=== PATIENT | female | born 1960 | race Caucasian/White ===

== ENCOUNTER 2017-06-05 09:49 | Inpatient (IN) | payer OTHER ==
[~2017-06-05] VITALS: Ht 167.6 cm; Wt 105.5 kg
[~2017-06-05 09:49] MED LIST: ALBU83IN INH; ASPI81TA24 PO; AVEL1TAB3 PO; CITA20TA4 PO; LEVO88TA3 PO; LOSA50TA20 PO; NICO7DIS4 TD; PRED20TA PO; SYMB80INH INH; TOPR50TA PO
[2017-06-05] MEDS ORDERED: ALBU83IN INH (10:13)
[2017-06-05] MEDS ORDERED: ALBU17IN INH (10:17)
[2017-06-05] MEDS ORDERED: TOPR50TA PO (10:17)
[2017-06-05] MEDS ORDERED: LOSA100T8 PO (10:17)
[2017-06-05] MEDS ORDERED: SING10TA32 PO (10:17)
[2017-06-05] MEDS ORDERED: CRES10TA32 PO (10:17)
[2017-06-05] MEDS ORDERED: NS 1,000 ML IV SCH ×2 (10:45→16:43)
[2017-06-05] MEDS ORDERED: ONDANSETRON 4MG/2ML VIAL (J2405) IV ONE (10:45)
[2017-06-05 10:56] LABS: BASO # 0.1 K/mm3 (0.0-0.2); BASO % 0.8 % (0.0-1.0); EOS # 0.3 K/mm3 (0.0-0.50); EOS % 3.4 % (0.0-3.0); LARGE UNSTAINED CELL # 0.1 K/mm3 (0.0-0.4); LARGE UNSTAINED CELL % 0.9 % (0.0-4.0); LYMPH # 1.5 K/mm3 (1.5-4.5); LYMPH % 15.7 % (24.0-44.0); MEAN CORPUSCULAR HEMOGLOBIN 33.5 pg (27.0-33.0); MEAN CORPUSCULAR HGB CONC 34.2 g/dl (32.0-36.5); MEAN CORPUSCULAR VOLUME 97.8 fl (80.0-96.0); MONO # 0.4 K/mm3 (0.0-0.8); MONO % 4.6 % (0.0-5.0); NEUTROPHILS # 6.7 K/mm3 (1.8-7.7); NEUTROPHILS % 74.7 % (36.0-66.0); PLATELET COUNT, AUTOMATED 266 k/mm3 (150-450); RED CELL DISTRIBUTION WIDTH 12.5 % (11.5-14.5)
[2017-06-05 11:20] LABS: ANION GAP 9 MEQ/L (8-16); BLOOD UREA NITROGEN 11 MG/DL (7-18); CALCIUM LEVEL 9.1 MG/DL (8.5-10.1); CARBON DIOXIDE LEVEL 30 MEQ/L (21-32); CHLORIDE LEVEL 101 MEQ/L (98-107); CREATININE FOR GFR 0.85 MG/DL (0.55-1.02); GLOMERULAR FILTRATION RATE > 60.0 (>51); GLUCOSE, FASTING 109 MG/DL (70-105); POTASSIUM SERUM 3.6 MEQ/L (3.5-5.1); SODIUM LEVEL 140 MEQ/L (136-145)
[2017-06-05] MEDS ORDERED: GASTROGRAFIN SOLUTION 30ML PO ONE ×2 (12:05→12:30)
[2017-06-05] MEDS ORDERED: GASTROGRAFIN SOLUTION 30ML (Q9963) PO ONE ×2 (12:30→12:35)
[2017-06-05] MEDS ORDERED: ISOVUE-370 76% 100ML VIAL (Q9967) As Ordered ONE (13:25)
[2017-06-05] MEDS ORDERED: SYMB16INH INH (16:11)
[2017-06-05] MEDS ORDERED: CLOP75TA2 PO (16:11)
[2017-06-05] MEDS ORDERED: B-COTAB10 PO (16:11)
[2017-06-05] MEDS ORDERED: MAGN400T5 PO (16:11)
[2017-06-05] MEDS ORDERED: COQ-100C2 PO (16:11)
[2017-06-05] MEDS ORDERED: ONDANSETRON 4 MG TAB (S0181) PO PRN (16:45)
[2017-06-05] MEDS ORDERED: ACETAMINOPHEN TAB 650MG DOSE (2X325MG) PO PRN ×2 (16:45→20:15)
[2017-06-05] MEDS ORDERED: ALBUTEROL SULFATE 2.5 MG/0.5 ML INH NEB SOLN INH PRN (17:15)
[2017-06-05] MEDS ORDERED: ALBUTEROL 90 MCG/ACT 8GM HFA INHALER INH PRN (17:15)
--- NOTE | 2017-06-05 18:46 | REP ---
CT abdomen pelvis with IV and oral contrast: History: Lower GI bleeding. Right lower quadrant pain. CT contrast dose: 100 ml of intravenous Isovue [address] findings: The preliminary digital edge burnisher radiograph shows an unremarkable gas pattern. The lung bases are clear. The liver shows mild diffuse fatty infiltration but is otherwise intact. No focal liver lesion is seen. Spleen is normal in size and homogeneous in texture. There is a tiny nodule in the medial limb of the right adrenal gland. This measures 1.9 cm in greatest diameter. This may be an adenoma. Normal caliber aorta is seen. No pancreatic abnormality is noted. The gallbladder is unremarkable. No hydronephrosis is seen. The kidneys enhance symmetrically and are morphologically intact. The appendix is surgically absent. The uterus has been removed. The urinary bladder is intact. There is mural thickening in the left colon from the splenic flexure through the descending segment with mild pericolonic stranding. This may reflect enterocolitis, infectious, inflammatory, or conceivably ischemic. The celiac axis, superior mesenteric artery, all appear to be enhancing consistent with patency. No free air is seen. No abdominal wall defect is observed. Impression: Enterocolitis picture involving the descending colon with mural thickening and mild pericolonic stranding from splenic flexure to the sigmoid segment. Infectious, inflammatory versus less likely ischemic. There is mild fatty infiltration of the liver. Post hysterectomy and appendectomy. Signed by Sincere Rice MD 06/09/2017 08:18 A
[2017-06-05] MEDS ORDERED: MAALOX 30 ML SUSP *UDC PO PRN (20:15)
[2017-06-05] MEDS ORDERED: ONDANSETRON 4MG/2ML VIAL (J2405) IV PRN (20:15)
[2017-06-05] MEDS ORDERED: PERCOCET 5MG/325MG TAB PO PRN (20:15)
[2017-06-05] MEDS: KCL 20MEQ in NS 1000ML 1,000 ML IV SCH (20:59)
[2017-06-05] MEDS ORDERED: hydroCHLOROthiazide 12.5 MG CAPSULE PO SCH (21:00)
[2017-06-05 22:20] VITALS: BP 173/93
[2017-06-05] MEDS: CIPROFLOXACIN 400 MG in APPROPRIATE DILUENT 1 EA IV SCH (22:41)
[2017-06-05] MEDS: MONTELUKAST 10 MG TAB PO SCH (22:42)
[2017-06-05] MEDS: METOPROLOL SUCC (TopROL XL) 50MG **XL** TAB PO SCH (22:43)
[2017-06-05] MEDS: CitaloPRAM (CeleXA) 20 MG TAB PO SCH (22:43)
[2017-06-05] MEDS: SYMBICORT 160/4.5MCG INHALER 6GM INH SCH (22:44)
[2017-06-05] MEDS: LOSARTAN 50 MG TAB PO SCH (22:44)
--- NOTE | 2017-06-05 23:42 | HPEPDOC ---
General Date of Admission 06/05/2017 Other Providers PCP: Nelli Jimenez Hospitality Coordinator: Dr. Stewart Attending Physician: VOLODYMYR DIAL DO Chief Complaint The patient is a 57-year-old female admitted with a reason for visit of Rectal Bleeding. History of Present Illness 57-year-old female with past medical history noticeable for coronary artery disease with stent placement 2014-on aspirin and Plavix, hypertension, hyperlipidemia, and COPD presents to the ED for new onset of nausea, vomiting, lower abdominal pain, and bloody diarrhea. Symptoms woke her up in her sleep around 11 PM last night, and patient has since had around 5 bowel movements. Patient unsure of when the blood in stool started, but first noticed it this morning. She describes stool as loose and with bright red blood. Patient states last episode of vomiting was this morning, and since has been dry heaving. Patient states she has never experienced this before. Patient denies hematemesis , hematuria, loss of appetite, unexpected weight loss. Patient denies recent travel history, sick contacts, changes in medications or lifestyle. Home Medications Scheduled (Losartan Potassium/Hydroc 100-12.5 mg) 1 Tab Tab, 1 TAB PO QHS, (Reported) (Coq-10) Unknown Strength Cap, Unknown Dose PO DAILY, (Reported) (B-Complex) 1 Tab Tab, 1 TAB PO DAILY, (Reported) Albuterol Sulfate (Albuterol Sulfate) 2.5 Mg/3 Ml Nebu, 2.5 MG INH PRN, ( Reported) Albuterol Sulfate (Ventolin Hfa) 200 Puff/8 Gm Aers, 2 PUFF INH PRN, (Reported) Aspirin (Aspirin EC) 81 Mg Tab, 81 MG PO DAILY, (Reported) HAS NOT TAKEN IN 10 DAYS DUE TO HAVING SURGERY Budesonide/Formoterol (Symbicort 160-4.5 Mcg/Act) 60 Puff/Inhaler Aers, 2 PUFF INH BID, (Reported) Citalopram Hydrobromide (Citalopram Hydrobromide) 20 Mg Tab, 20 MG PO QHS, ( Reported) Clopidogrel Bisulfate (Clopidogrel) 75 Mg Tab, 75 MG PO QHS, (Reported) Levothyroxine Sodium (Synthroid) 88 Mcg Tab, 88 MCG PO DAILY, (Reported) Magnesium Oxide (Magnesium Oxide 400) 400 Mg Tab, 400 MG PO DAILY, (Reported) Metoprolol Succinate (Toprol Xl) 50 Mg Tab, 50 MG PO BID, (Reported) Montelukast Sodium (Singulair) 10 Mg Tab, 10 MG PO QHS, (Reported) Rosuvastatin (Crestor) 10 Mg Tab, 10 MG PO Q2D, (Reported) BEDTIME Allergies Coded Allergies: Penicillins (Verified Allergy, Severe, throat swelling, 06/05/17) Cephalosporins (Verified Allergy, Intermediate, hives, 06/05/17) Vancomycin (Verified Allergy, Intermediate, hives, 06/05/17) Mold (Blue) Cheese (Verified Allergy, Unknown, 09/25/14) Past Medical History Medical History Hypertension Hyperlipidemia Depression Hypothyroidism Coronary artery disease (RCA 30% blocked, LAD 50%, circumflex 60%) COPD Surgical History total abdominal hysterectomy-bilateral salpingo-oophorectomy Right knee arthroscopic surgery Right knee replacement Appendectomy Left knee lateral and medial meniscus repair Cardiac stents 06/2015 Family History Father: hypertension, coronary artery disease-quadruple bypass at age 46, passed of [place] at age 69 Mother: Alive, hypertension Siblings: Healthy Maternal grandmother: Breast cancer Social History Smoking: Quit 5 months ago, smoked half ppd for >30 years Alcohol: Wine 1-2 glasses/day, daily Illicit substances: Denies Lives at home with , one dog, 3 cats, one cockatoo 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[employer] [place] Review of Symptoms Constitutional: Denies: Chills, Fever, Malaise, Night Sweats, Weakness, Weight Loss Eyes: Denies: Vision change ENT: Denies: Head Aches, Ear Pain, Dysphagia Pulmonary: Denies: Dyspnea, Cough Cardiovascular: Denies: Chest Pain, Palpitations, Edema, Lt Headedness Gastrointestinal: Reports: Nausea, Vomiting (non-bloody, non-bilious), Abdominal Pain (lower abdomen), Diarrhea (4-5 BMs in past 24 hours), Hematochezia, Denies: Melena Genitourinary: Denies: Hematuria Musculoskeletal: Denies: Joint Pain, Muscle Pain Neurological: Denies: Weakness, Numbness Psych: Reports: Mood Normal Physical Examination General Exam: Positive: Alert, Cooperative, No Acute Distress Eye Exam: Positive: PERRLA, Conjunctiva & lids normal, EOMI, Negative: Sclera icteric ENT Exam: Positive: Atraumatic, Mucous membr. moist/pink, Pharynx Normal, Tongue Midline Neck Exam: Positive: Supple, Negative: JVD, thyromegaly, Lymphadenopathy Chest Exam: Positive: Clear to auscultation, Normal air movement, Negative: Rales, Rhonchi, Wheezing Heart Exam: Positive: Rate Normal, Regular Rhythm, Normal S1, Normal S2, Negative: Murmurs Abdomen Exam: Positive: Normal bowel sounds, Soft, Tenderness (to palpation in left lower quadrant) Extremity Exam: Positive: Normal pulses, Negative: Clubbing, Cyanosis, Edema Skin Exam: Positive: Nl turgor and temperature Neuro Exam: Positive: Normal Speech, Strength at 5/5 X4 ext Psych Exam: Positive: Mental status NL, Mood NL, Memory Intact, Oriented x 3 Vital Signs Vital Signs Date Time Temp Pulse Resp B/P (MAP) Pulse Ox O2 Delivery O2 Flow Rate FiO2 06/05/17 15:52 64 94 06/05/17 14:07 124/77 (93) 06/05/17 09:50 97.6 18 Room Air Laboratory Data Labs 24H Laboratory Tests 2 06/05/17 10:45: White Blood Count 9.0, Red Blood Count 4.01, Hemoglobin 13.4, Hematocrit 39.2, Mean Corpuscular Volume 97.8H, Mean Corpuscular Hemoglobin 33.5H, Mean Corpuscular Hemoglobin Concent 34.2, Red Cell Distribution Width 12.5, Platelet Count 266, Neutrophils (%) (Auto) 74.7H, Lymphocytes (%) (Auto) 15.7L, Monocytes (%) (Auto) 4.6, Eosinophils (%) (Auto) 3.4H, Basophils (%) (Auto) 0.8 , Neutrophils # (Auto) 6.7, Lymphocytes # (Auto) 1.5, Monocytes # (Auto) 0.4, Eosinophils # (Auto) 0.3, Basophils # (Auto) 0.1, Large Unclassified Cells % 0.9 , Large Unclassified Cells # 0.1, Anion Gap 9, Glomerular Filtration Rate > 60.0 , Blood Urea Nitrogen 11, Creatinine 0.85, Sodium Level 140, Potassium Level 3.6 , Chloride Level 101, Carbon Dioxide Level 30, Calcium Level 9.1 06/05/17 15:35: Lactic Acid Level 1.0 CBC/BMP Laboratory Tests 06/05/17 10:45 Red Blood Count 4.01, Mean Corpuscular Volume 97.8 H, Mean Corpuscular Hemoglobin 33.5 H, Mean Corpuscular Hemoglobin Concent 34.2, Red Cell Distribution Width 12.5, Neutrophils (%) (Auto) 74.7 H, Lymphocytes (%) (Auto) 15.7 L, Monocytes (%) (Auto) 4.6, Eosinophils (%) (Auto) 3.4 H, Basophils (%) ( Auto) 0.8, Neutrophils # (Auto) 6.7, Lymphocytes # (Auto) 1.5, Monocytes # (Auto ) 0.4, Eosinophils # (Auto) 0.3, Basophils # (Auto) 0.1, Calcium Level 9.1 06/05/17 14:08 Assessment/Plan N/V/D / Enterocolitis -PENDING: blood cultures, urinalysis -CT Abd/Pelvis: Enterocolitis of descending colon. Infectious, inflammatory versus less likely ischemic. -stool occult blood: positive -GI Panel: negative -no white count on admission, lactica acid normal, and vitals WNL on admission. Start Cipro, Flagyl due to imaging suggesting enteritis and elevated CRP -NG Tube if pt continues vomiting -check orthostatics. IV hydration. Clear liquid diet. -Consult surgery. Appreciate their input Hypothyroidism -PENDING: TSH level -home med Synthroid HLD/CAD -home med Crestor, Toprol HTN -home med Cozaar. Hold HCTZ COPD -home meds Symbicort, Singulair, Proventil Depression -home med Celexa DVT prophylaxis -SCD/FLY DISPO: admit to Med-Surg to Dr. Dial's service. Plan / VTE VTE Prophylaxis Ordered?: Yes GME ATTESTATION GME ATTESTATION My preceptor for this patient encounter was physically present in the building during the encounter and was fully available. As needed, all aspects of the patient interview, examination, medical decision making process, and medical care plan development were reviewed and approved by the preceptor. Preceptor is aware and concurs with the plan as stated in the body of this note and will attest to such by his/her cosignature. ATTENDING NOTE I have both independently examined this patient as well as reviewed the H&P. I have discussed in detail with the resident the findings and plan of treatment as documented in the residents note. I will continue to follow the patient and offer further guidance to the patients care as necessary during this hospital stay. Tesha [facility] Jun 05, 2017 17:20 TESHA GILLIS MD Jun 07, 2017 11:47
[2017-06-06] VITALS: BP_SYST 119; BP_SYST 122; BP_SYST 123; BP_DIAS 67; BP_DIAS 71; BP_DIAS 75
[2017-06-06] MEDS: metroNIDAZOLE 500 MG in APPROPRIATE DILUENT 1 EA IV SCH ×4 (00:02→22:56)
[2017-06-06] MEDS: KCL 20MEQ in NS 1000ML 1,000 ML IV SCH ×2 (03:45→10:20)
[2017-06-06] MEDS: LEVOTHYROXINE 88MCG TABLET (0.088 MG) PO SCH (06:16)
[2017-06-06 07:24] LABS: MEAN CORPUSCULAR HEMOGLOBIN 33.7 pg (27.0-33.0); MEAN CORPUSCULAR HGB CONC 34.5 g/dl (32.0-36.5); MEAN CORPUSCULAR VOLUME 97.5 fl (80.0-96.0); RED CELL DISTRIBUTION WIDTH 12.4 % (11.5-14.5); WHITE BLOOD COUNT 7.8 K/mm3 (4.0-10.0)
[2017-06-06] MEDS: SYMBICORT 160/4.5MCG INHALER 6GM INH SCH ×2 (07:54→19:34)
[2017-06-06 08:00] VITALS: BP 117/60
[2017-06-06 08:01] LABS: ANION GAP 9 MEQ/L (8-16); BLOOD UREA NITROGEN 7 MG/DL (7-18); CALCIUM LEVEL 7.7 MG/DL (8.5-10.1); CARBON DIOXIDE LEVEL 23 MEQ/L (21-32); CHLORIDE LEVEL 112 MEQ/L (98-107); CREATININE FOR GFR 0.71 MG/DL (0.55-1.02); GLOMERULAR FILTRATION RATE > 60.0 (>51); GLUCOSE, FASTING 101 MG/DL (70-105); MAGNESIUM LEVEL 1.7 MG/DL (1.8-2.4); POTASSIUM SERUM 3.9 MEQ/L (3.5-5.1); SODIUM LEVEL 144 MEQ/L (136-145); T UPTAKE 42 % (30-39); THYROXINE (T4) 11.5 UG/DL (4.5-12.0)
[2017-06-06 08:02] VITALS: BP 122/62
[2017-06-06 08:04] VITALS: BP 129/64
[2017-06-06] MEDS: CIPROFLOXACIN 400 MG in APPROPRIATE DILUENT 1 EA IV SCH ×2 (08:50→21:19)
[2017-06-06] MEDS: METOPROLOL SUCC (TopROL XL) 50MG **XL** TAB PO SCH ×2 (08:51→21:22)
[2017-06-06] MEDS: MAGNESIUM OXIDE 400 MG TAB (MAG-OX) PO SCH (08:51)
[2017-06-06] MEDS ORDERED: PANTOPRAZOLE 40MG INJ (PROTONIX) (C9113) IV SCH (09:00)
--- NOTE | 2017-06-06 10:50 | IPNPDOC ---
Subjective Date Seen The patient was seen on 06/06/17. Subjective Chief Complaint/HPI The patient is a 57-year-old female admitted with a reason for visit of Enteritis. Patient seen and examined at bedside. No acute complaints or reported events overnight. Nausea and vomiting have resolved. Last bowel movement was last night in the ED that was bloody. Patient still reports lower abdominal pain, more so on the left. Denies fever, hematuria, lightheadedness, dizziness. Tolerating clear liquid diet well. General: Reports: Normal Appetite Constitutional: Denies: Chills, Fever ENT: Denies: Head Aches, Dysphagia Pulmonary: Denies: Dyspnea, Cough Cardiovascular: Denies: Chest Pain, Palpitations, Edema, Lt Headedness Gastrointestinal: Reports: Abdominal Pain (lower abdmonen, more on left side), Diarrhea (no BM today, 1 in ER last night-bloody), Hematochezia, Denies: Nausea, Vomiting, Melena Genitourinary: Denies: Hematuria Neurological: Denies: Weakness, Numbness Psych: Reports: Mood Normal Objective Physical Examination General Exam: Positive: Alert, Cooperative, No Acute Distress Eye Exam: Positive: PERRLA, Conjunctiva & lids normal, EOMI, Negative: Sclera icteric ENT Exam: Positive: Atraumatic, Mucous membr. moist/pink, Pharynx Normal, Tongue Midline Neck Exam: Positive: Supple, Negative: JVD, thyromegaly, Lymphadenopathy Chest Exam: Positive: Clear to auscultation, Normal air movement, Negative: Rales, Rhonchi, Wheezing Heart Exam: Positive: Rate Normal, Regular Rhythm, Normal S1, Normal S2, Negative: Murmurs Abdomen Exam: Positive: Normal bowel sounds, Soft, Tenderness (mild pain to palpation in left lower quadrant) Extremity Exam: Positive: Normal pulses, Negative: Clubbing, Cyanosis, Tenderness, Swelling Skin Exam: Positive: Nl turgor and temperature Neuro Exam: Positive: Normal Speech, Strength at 5/5 X4 ext Psych Exam: Positive: Mental status NL, Mood NL, Memory Intact, Oriented x 3 Assessment /Plan Assessment N/V/D 2/2 Enterocolitis -PENDING: blood cultures -No white count today, and afebrile, but CRP increasing. Continue Cipro, Flagyl -orthostatics negative so far -IV hydration. Tolerating clear liquid diet well. Will advance as tolerated Borderline Hypocalcemia -Corrected Ca=8.5. Replete today Hypothyroidism -TSH normal -continue home med Synthroid HLD/CAD -home med Crestor, Toprol HTN -home med Cozaar. Hold HCTZ COPD -home meds Symbicort, Singulair, Proventil Depression -home med Celexa DVT prophylaxis -SCD/FLY Plan/VTE VTE Prophylaxis Ordered?: Yes VS, I&O, 24H, Fishbone Vital Signs/I&O Vital Signs Date Time Temp Pulse Resp B/P (MAP) Pulse Ox O2 Delivery O2 Flow Rate FiO2 06/06/17 04:00 Room Air 06/06/17 00:00 63 119/67 (84) 06/05/17 22:20 98.2 18 95 I&O- Last 24 Hours up to 6 AM 06/06/17 06:00 Intake Total 1240 ml Output Total 100 ml Balance 1140 ml Laboratory Data 24H LABS Laboratory Tests 2 06/05/17 10:45: White Blood Count 9.0, Red Blood Count 4.01, Hemoglobin 13.4, Hematocrit 39.2, Mean Corpuscular Volume 97.8H, Mean Corpuscular Hemoglobin 33.5H, Mean Corpuscular Hemoglobin Concent 34.2, Red Cell Distribution Width 12.5, Platelet Count 266, Neutrophils (%) (Auto) 74.7H, Lymphocytes (%) (Auto) 15.7L, Monocytes (%) (Auto) 4.6, Eosinophils (%) (Auto) 3.4H, Basophils (%) (Auto) 0.8 , Neutrophils # (Auto) 6.7, Lymphocytes # (Auto) 1.5, Monocytes # (Auto) 0.4, Eosinophils # (Auto) 0.3, Basophils # (Auto) 0.1, Large Unclassified Cells % 0.9 , Large Unclassified Cells # 0.1, Anion Gap 9, Glomerular Filtration Rate > 60.0 , Blood Urea Nitrogen 11, Creatinine 0.85, Sodium Level 140, Potassium Level 3.6 , Chloride Level 101, Carbon Dioxide Level 30, Calcium Level 9.1 06/05/17 15:35: Lactic Acid Level 1.0 06/05/17 17:31: C-Reactive Protein, Quantitative 0.76H 06/06/17 07:09: Anion Gap 9, Glomerular Filtration Rate > 60.0, Blood Urea Nitrogen 7, Creatinine 0.71, Sodium Level 144, Potassium Level 3.9, Chloride Level 112H, Carbon Dioxide Level 23, Calcium Level 7.7#L, Magnesium Level 1.7L, Thyroid Stimulating Hormone (TSH) 0.790, Free Thyroxine Index 4.8, Thyroxine (T4) 11.5, Triiodothyronine (T3) Uptake 42H CBC/BMP Laboratory Tests 06/05/17 10:45 Red Blood Count 4.01, Mean Corpuscular Volume 97.8 H, Mean Corpuscular Hemoglobin 33.5 H, Mean Corpuscular Hemoglobin Concent 34.2, Red Cell Distribution Width 12.5, Neutrophils (%) (Auto) 74.7 H, Lymphocytes (%) (Auto) 15.7 L, Monocytes (%) (Auto) 4.6, Eosinophils (%) (Auto) 3.4 H, Basophils (%) ( Auto) 0.8, Neutrophils # (Auto) 6.7, Lymphocytes # (Auto) 1.5, Monocytes # (Auto ) 0.4, Eosinophils # (Auto) 0.3, Basophils # (Auto) 0.1, Calcium Level 9.1 06/05/17 14:08 06/05/17 20:23 06/06/17 02:02 06/06/17 07:09 Red Blood Count 3.49 L, Mean Corpuscular Volume 97.5 H, Mean Corpuscular Hemoglobin 33.7 H, Mean Corpuscular Hemoglobin Concent 34.5, Red Cell Distribution Width 12.4, Calcium Level 7.7 #L Microbiology Microbiology 06/05/17 Blood Culture, Received Pending 06/05/17 Blood Culture, Received Pending 06/05/17 Gastrointestinal Tract Panel (PCR) - Final, Complete 06/05/17 Stool Occult Blood ([facility]) - Final, Complete GME ATTESTATION GME ATTESTATION My preceptor for this patient encounter was physically present in the building during the encounter and was fully available. As needed, all aspects of the patient interview, examination, medical decision making process, and medical care plan development were reviewed and approved by the preceptor. Preceptor is aware and concurs with the plan as stated in the body of this note and will attest to such by his/her cosignature. RAGINI ROSS DO Jun 06, 2017 08:21
[2017-06-06] MEDS ORDERED: CALCIUM CARBONATE 500 MG CHEW U/D PO ONE (11:00)
[2017-06-06 16:00] VITALS: BP_SYST 127; BP_SYST 137; BP_SYST 158; BP_DIAS 73; BP_DIAS 82; BP_DIAS 83
[2017-06-06 20:00] VITALS: BP 134/74
[2017-06-06] MEDS: MONTELUKAST 10 MG TAB PO SCH (21:19)
[2017-06-06] MEDS: ROSUVASTATIN 10 MG TAB (CRESTOR) PO SCH (21:19)
[2017-06-06] MEDS: LOSARTAN 50 MG TAB PO SCH (21:22)
[2017-06-06] MEDS: CitaloPRAM (CeleXA) 20 MG TAB PO SCH (21:23)
[2017-06-07] VITALS: BP 120/63
[2017-06-07] MEDS: KCL 20MEQ in NS 1000ML 1,000 ML IV SCH (02:27)
[2017-06-07] MEDS: LEVOTHYROXINE 88MCG TABLET (0.088 MG) PO SCH (06:27)
[2017-06-07] MEDS: metroNIDAZOLE 500 MG in APPROPRIATE DILUENT 1 EA IV SCH (06:27)
[2017-06-07 07:07] LABS: MEAN CORPUSCULAR HEMOGLOBIN 33.4 pg (27.0-33.0); MEAN CORPUSCULAR HGB CONC 33.7 g/dl (32.0-36.5); RED CELL DISTRIBUTION WIDTH 12.5 % (11.5-14.5); WHITE BLOOD COUNT 8.9 K/mm3 (4.0-10.0)
[2017-06-07 07:15] VITALS: BP_SYST 138; BP_SYST 149; BP_SYST 153; BP_DIAS 77; BP_DIAS 91; BP_DIAS 99
[2017-06-07 07:25] LABS: ANION GAP 7 MEQ/L (8-16); BLOOD UREA NITROGEN 4 MG/DL (7-18); CALCIUM LEVEL 8.7 MG/DL (8.5-10.1); CARBON DIOXIDE LEVEL 26 MEQ/L (21-32); CHLORIDE LEVEL 110 MEQ/L (98-107); CREATININE FOR GFR 0.69 MG/DL (0.55-1.02); GLOMERULAR FILTRATION RATE > 60.0 (>51); GLUCOSE, FASTING 107 MG/DL (70-105); MAGNESIUM LEVEL 2.1 MG/DL (1.8-2.4); POTASSIUM SERUM 4.1 MEQ/L (3.5-5.1); SODIUM LEVEL 143 MEQ/L (136-145)
[2017-06-07] MEDS: SYMBICORT 160/4.5MCG INHALER 6GM INH SCH ×2 (08:42→19:44)
[2017-06-07 09:00] VITALS: BP 126/70
[2017-06-07] MEDS: MAGNESIUM OXIDE 400 MG TAB (MAG-OX) PO SCH (10:34)
[2017-06-07] MEDS: METOPROLOL SUCC (TopROL XL) 50MG **XL** TAB PO SCH ×2 (10:35→21:38)
[2017-06-07] MEDS: PANTOPRAZOLE 40MG TAB (PROTONIX) PO SCH (15:07)
[2017-06-07] MEDS: metroNIDAZOLE (FLAGYL) 500 MG TAB PO SCH ×2 (15:07→21:38)
--- NOTE | 2017-06-07 15:58 | IPN ---
DATE: 06/07/2017 SUBJECTIVE: Patient is seen and examined in the room today. Per patient, patient does not notice any blood in the stool anymore. Patient had an episode of temperature of 101.3 around 8 p.m. yesterday, however, she had no recurrence in the morning. Due to gastrointestinal (GI) bleed, patient's Plavix has been discontinued and patient is worried about discontinuation of Plavix and she would like feedback from Dr. Stewart. I discussed with the patient that we will try to contact Dr. Stewart when Dr. Stewart is available. OBJECTIVE: VITAL SIGNS: Temperature 98.5, pulse 69, respiration rate is 18, blood pressure supine is 153/77, sitting is 138/99, standing is 149/91, pulse oximetry is 94% in room air. GENERAL: No sign of acute distress, alert and oriented times three. HEENT: Normocephalic, atraumatic. Extraocular motors grossly intact. CARDIOVASCULAR: Positive S1, S2, regular rate. LUNGS: Clear to auscultation bilaterally. ABDOMEN: Soft, tenderness to palpation. EXTREMITIES: No edema. No sign of cyanosis. LABORATORY DATA: WBC 8.9, hemoglobin 11.4, hematocrit 33.9, platelet count 236. Sodium 143, potassium 4.1, chloride 110, carbon dioxide 26, BUN 4, creatinine 0.69, GFR greater than 60, fasting glucose 107, calcium 8.7, magnesium 2.1. ASSESSMENT AND PLAN: 1. Enterocolitis. Patient had a CT abdomen and pelvis with contrast performed on the date of admission. Imaging study suggests enterocolitis. Patient has been on Cipro and Flagyl. Symptomatically, patient shows improvement. Patient was advanced on the diet, however IV has infiltrated, but since patient shows adequate oral intake, will hold the fluid hydration for now. Gastrointestinal (GI) panel is negative. There is the possibility that patient's current presentation may be due to inflammatory disease process instead of infectious process. Will continue to monitor the patient. Since admission, patient had active gastrointestinal (GI) bleed. Will try to followup with hemoglobin and hematocrit. No significant drop of the hemoglobin and hematocrit at this moment and no need for transfusion. We do have a consent for blood products if needed. 2. Acute gastrointestinal (GI) bleed. Plavix has been on hold. Gastrointestinal (GI) bleed resolved today. Continue to monitor. 3. Hypothyroidism. On Synthroid. 4. History of coronary artery disease. On metoprolol and Crestor. Plavix is on hold due to gastrointestinal (GI) bleed. Aspirin is also on hold due to gastrointestinal (GI) bleed. 5. History of chronic obstructive pulmonary disease (COPD). No exacerbation. Continue to monitor. 6. Depression. On Celexa. 7. Deep venous thrombosis (DVT) prophylaxis. Due to gastrointestinal (GI) bleed, patient is on thromboembolism deterrents (TEDs) and sequential compression device.
[2017-06-07 16:00] VITALS: BP 132/75
[2017-06-07 16:28] VITALS: BP 139/62
[2017-06-07] MEDS: CIPROFLOXACIN 500 MG TAB PO SCH (18:26)
[2017-06-07 20:00] VITALS: BP 133/73
[2017-06-07] MEDS: LOSARTAN 50 MG TAB PO SCH (21:37)
[2017-06-07] MEDS: MONTELUKAST 10 MG TAB PO SCH (21:38)
[2017-06-07] MEDS: CitaloPRAM (CeleXA) 20 MG TAB PO SCH (21:38)
[2017-06-08] VITALS: BP 126/76
[2017-06-08] MEDS: CIPROFLOXACIN 500 MG TAB PO SCH ×2 (05:48→18:20)
[2017-06-08] MEDS: LEVOTHYROXINE 88MCG TABLET (0.088 MG) PO SCH (05:48)
[2017-06-08] MEDS: metroNIDAZOLE (FLAGYL) 500 MG TAB PO SCH ×3 (05:48→21:26)
[2017-06-08 07:23] LABS: MEAN CORPUSCULAR HEMOGLOBIN 33.9 pg (27.0-33.0); MEAN CORPUSCULAR HGB CONC 34.7 g/dl (32.0-36.5); MEAN CORPUSCULAR VOLUME 97.8 fl (80.0-96.0); RED CELL DISTRIBUTION WIDTH 12.5 % (11.5-14.5); WHITE BLOOD COUNT 7.6 K/mm3 (4.0-10.0)
[2017-06-08 07:53] LABS: ANION GAP 8 MEQ/L (8-16); BLOOD UREA NITROGEN 8 MG/DL (7-18); CALCIUM LEVEL 8.8 MG/DL (8.5-10.1); CARBON DIOXIDE LEVEL 25 MEQ/L (21-32); CHLORIDE LEVEL 107 MEQ/L (98-107); CREATININE FOR GFR 0.85 MG/DL (0.55-1.02); GLOMERULAR FILTRATION RATE > 60.0 (>51); GLUCOSE, FASTING 107 MG/DL (70-105); MAGNESIUM LEVEL 1.9 MG/DL (1.8-2.4); POTASSIUM SERUM 3.9 MEQ/L (3.5-5.1); SODIUM LEVEL 140 MEQ/L (136-145)
[2017-06-08 08:00] VITALS: BP_SYST 108; BP_SYST 123; BP_SYST 126; BP_DIAS 54; BP_DIAS 73; BP_DIAS 75
[2017-06-08] MEDS: SYMBICORT 160/4.5MCG INHALER 6GM INH SCH ×2 (08:08→18:26)
[2017-06-08] MEDS: PANTOPRAZOLE 40MG TAB (PROTONIX) PO SCH (08:50)
[2017-06-08] MEDS: MAGNESIUM OXIDE 400 MG TAB (MAG-OX) PO SCH (08:50)
[2017-06-08] MEDS: METOPROLOL SUCC (TopROL XL) 50MG **XL** TAB PO SCH ×2 (08:51→21:25)
--- NOTE | 2017-06-08 13:27 | IPNPDOC ---
Subjective Date Seen The patient was seen on 06/08/17. Subjective Chief Complaint/HPI The patient is a 57-year-old female admitted with a reason for visit of Enteritis. No acute complaints or reported events overnight. Pt states she is feeling well, tolerating soft diet without complaint, and did not notice blood in recent BM. Constitutional: Denies: Chills, Fever ENT: Denies: Dysphagia Pulmonary: Denies: Dyspnea, Cough Cardiovascular: Denies: Chest Pain, Palpitations, Lt Headedness Gastrointestinal: Denies: Nausea, Vomiting, Melena, Hematochezia Genitourinary: Denies: Hematuria Neurological: Denies: Weakness, Numbness Psych: Reports: Mood Normal Objective Physical Examination General Exam: Positive: Alert, Cooperative, No Acute Distress Eye Exam: Positive: PERRLA, Conjunctiva & lids normal, EOMI, Negative: Sclera icteric ENT Exam: Positive: Atraumatic, Mucous membr. moist/pink Neck Exam: Positive: Supple, Negative: JVD, Lymphadenopathy Chest Exam: Positive: Clear to auscultation, Normal air movement, Negative: Rales, Rhonchi, Wheezing Heart Exam: Positive: Rate Normal, Regular Rhythm, Normal S1, Normal S2, Negative: Murmurs Abdomen Exam: Positive: Normal bowel sounds, Soft Extremity Exam: Positive: Normal pulses, Negative: Clubbing, Cyanosis, Edema Skin Exam: Positive: Nl turgor and temperature Neuro Exam: Positive: Normal Speech, Strength at 5/5 X4 ext Psych Exam: Positive: Mental status NL, Mood NL, Memory Intact, Oriented x 3 Assessment /Plan Assessment N/V/D -viral enterocolitis vs acute Crohn's episode vs possible malignancy -pt reports recent BM was non-bloody -GI consulted. Appreciate their assistance -blood cultures neg at 24hrs -No white count today, and afebrile, vitals WNL. CRP decreasing from 06/06. Cipro , Flagyl switched to PO due to IV penetration -orthostatics negative so far -IV hydration. Diet was advanced to soft yesterday-tolerating well Hypothyroidism -continue home med Synthroid HLD/CAD -home med Crestor, Toprol HTN -home med Cozaar. Hold HCTZ COPD -home meds Symbicort, Singulair, Proventil Depression -home med Celexa DVT prophylaxis -SCD/FLY Plan/VTE VTE Prophylaxis Ordered?: Yes VS, I&O, 24H, Fishbone Vital Signs/I&O Vital Signs Date Time Temp Pulse Resp B/P (MAP) Pulse Ox O2 Delivery O2 Flow Rate FiO2 06/08/17 00:00 98.8 65 18 126/76 (93) 96 Room Air I&O- Last 24 Hours up to 6 AM 06/08/17 05:59 Intake Total 1080 ml Output Total 700 ml Balance 380 ml Laboratory Data 24H LABS Laboratory Tests 2 06/08/17 07:11: CBC/BMP Laboratory Tests 06/07/17 13:50 06/07/17 19:51 06/08/17 02:07 06/08/17 07:11 Red Blood Count 3.52 L, Mean Corpuscular Volume 97.8 H, Mean Corpuscular Hemoglobin 33.9 H, Mean Corpuscular Hemoglobin Concent 34.7, Red Cell Distribution Width 12.5 Microbiology Microbiology 06/05/17 Blood Culture - Preliminary, Resulted No Growth after 48 hours. All Specime... 06/05/17 Blood Culture - Preliminary, Resulted No Growth after 48 hours. All Specime... 06/05/17 Gastrointestinal Tract Panel (PCR) - Final, Complete 06/05/17 Stool Occult Blood ([facility]) - Final, Complete GME ATTESTATION GME ATTESTATION My preceptor for this patient encounter was physically present in the building during the encounter and was fully available. As needed, all aspects of the patient interview, examination, medical decision making process, and medical care plan development were reviewed and approved by the preceptor. Preceptor is aware and concurs with the plan as stated in the body of this note and will attest to such by his/her cosignature. RAGINI ROSS DO Jun 08, 2017 07:45
[2017-06-08 16:00] VITALS: BP 137/83
[2017-06-08] MEDS ORDERED: GOLYTELY SOLN 4000 ML BTL PO ONE (18:00)
[2017-06-08] MEDS ORDERED: BISACODYL 5 MG TAB PO ONE (18:00)
--- NOTE | 2017-06-08 19:44 | CR.PDOC ---
[facility] Consultation Consultation DATE OF CONSULTATION: Jun 08, 2017 at 16:30 PRIMARY CARE PHYSICIAN: Nelli Jimenez and Baked And Graphite Inspector Dr. Stewart ATTENDING PHYSICIAN: Dr. Saini REASON FOR CONSULTATION/CHIEF COMPLAINT: Abnormal CT scan and rectal bleeding. HISTORY OF PRESENT ILLNESS: 57-year-old female patient with HTN, HLD, CAD with h /o PCI in jun 2015 ( on Plavix and aspirin), h/o smoking for 30 years - quit in 2014 -( normal PFT as per patient), was admitted for scute onset of nausea, one episode of vomiting, followed by lower abdominal pain and multiple episodes of bloody diarrhea ( one witnessed by patient and one witnessed by hospital physician. CT abdomen done in hospital showed bowel wall thickening ( concerning for inflammation vs ischemic colitis). GI consulted for the same. Patient reports that she started having severe 10/ 10 lower abdominal pain with acute onset diarrhea 3 days ago when she had atleast 5 bowel movements and she had bloody bowel movement atleast once in the morning. Patient says she only noted blood without any stools, associated with nausea and dry heaves. Patient today says her pain had significantly improved and the blood in stools had stopped since yesterday morning but still continues to have diarrhea and had one documented episode of fever during the hospitalization. Patient denies similar episodes before, no sick contacts, no unusual food intake, loss of appetite, early satiety or unintentional weight loss hematemesis, melena. 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 Skin: No rash : No hematuria, No burning sensation of the urine ENT: No ear discharge/ pain, No dysphagia. Eyes: No photophobia. Home medications: reviewed. On Plavix and ASA but Not on anticoagulants Medical h/o: As above. Surgical h/o: Hysterectomy with oophorectomy and h/o exploratory laparoscopy with some benign pelvic mass removal and appendix removal.. Social h/o: Social Alcohol use- around 1 - 2 drinks of wine per day. H/o smoking for 30 years but quit in 2014, Denies IVDA/ drugs. Family h/o of GI cancers - None Prior Endoscopies: --- Screening Colonoscopy -- at age 49 -- normal but reports difficult colonoscopy - due to adhesions as per patient - done outside [facility]. Prior GI evaluation: None in [facility]. Exam: Vitals: reviewed General: Alert and oriented x 3, not in distress HEENT: NO pallor, no icterus. Normal oropharynx, NO cervical lymph nodes. Chest: symmetric with bilateral clear air entry, CVS: S1, S2 heard, normal, no murmurs . Abdomen: non-distended, soft, non-tender, no palpable masses, normal bowel sounds heard. Rectal exam: Deferred at this time in view of scheduled colonoscopy. Extremities: no pedal edema, pulses palpable. 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 Moves all extremities Skin: no rash. Labs: reviewed. initial drop in HCT. Normal BUN/ cr. Imaging: reviewed. CT scan showed wall thickening on the left colon. Impression: - Rectal bleeding with abdominal pain - DDx - Ischemic colitis vs infectious colitis vs inflammatory colitis vs r/o polyp vs colon mass( less likely). ( stool panel- negative for infection). - Abnormal CT scan of abdomen. - Mild anemia - likely from GI blood loss. Macrocytosis -- needs further evaluation. Recommendations: - Patient educated about the test results - Patient educated about the possible differential diagnoses and plan of care. All questions answered to the patient satisfaction - Patient educated about the need for colonoscopy and educated about the indications, benefits, risks and alternatives including no intervention. Patient verbalized understanding and consented for the procedure. Consent placed in chart. - Start on clear liquid diet today. - Start on golytely / Garcia-prep ( depending on availability from pharmacy) from now - to complete half tonight and rest of the half by tomorrow morning by 9 AM. - Give dulcolax 20 mg at 6 PM. - Clear liquid until 4 hours prior to procedure then NPO. - Plavix currently on hold as per primary team. - IN view of macrocytic anemia - please obtain Vitamin B12 and folic acid levels. - Update GI stat if any acute change in status. Plan of care discussed with patient and the primary team and ordered for bowel prep placed with help of RN. Patient verbalized understanding and agreed for plan of care. Allergies Coded Allergies: Penicillins (Verified Allergy, Severe, throat swelling, 06/05/17) Cephalosporins (Verified Allergy, Intermediate, hives, 06/05/17) Vancomycin (Verified Allergy, Intermediate, hives, 06/05/17) Mold (Blue) Cheese (Verified Allergy, Unknown, 09/25/14) Home Medications Scheduled (Losartan Potassium/Hydroc 100-12.5 mg) 1 Tab Tab, 1 TAB PO QHS, (Reported) (Coq-10) Unknown Strength Cap, Unknown Dose PO DAILY, (Reported) (B-Complex) 1 Tab Tab, 1 TAB PO DAILY, (Reported) Albuterol Sulfate (Albuterol Sulfate) 2.5 Mg/3 Ml Nebu, 2.5 MG INH PRN, ( Reported) Albuterol Sulfate (Ventolin Hfa) 200 Puff/8 Gm Aers, 2 PUFF INH PRN, (Reported) Aspirin (Aspirin EC) 81 Mg Tab, 81 MG PO DAILY, (Reported) HAS NOT TAKEN IN 10 DAYS DUE TO HAVING SURGERY Budesonide/Formoterol (Symbicort 160-4.5 Mcg/Act) 60 Puff/Inhaler Aers, 2 PUFF INH BID, (Reported) Citalopram Hydrobromide (Citalopram Hydrobromide) 20 Mg Tab, 20 MG PO QHS, ( Reported) Clopidogrel Bisulfate (Clopidogrel) 75 Mg Tab, 75 MG PO QHS, (Reported) Levothyroxine Sodium (Synthroid) 88 Mcg Tab, 88 MCG PO DAILY, (Reported) Magnesium Oxide (Magnesium Oxide 400) 400 Mg Tab, 400 MG PO DAILY, (Reported) Metoprolol Succinate (Toprol Xl) 50 Mg Tab, 50 MG PO BID, (Reported) Montelukast Sodium (Singulair) 10 Mg Tab, 10 MG PO QHS, (Reported) Rosuvastatin (Crestor) 10 Mg Tab, 10 MG PO Q2D, (Reported) BEDTIME ERIN CASTRO MD Jun 08, 2017 19:44
[2017-06-08 20:00] VITALS: BP 128/67
[2017-06-08] MEDS: LOSARTAN 50 MG TAB PO SCH (21:24)
[2017-06-08] MEDS: ROSUVASTATIN 10 MG TAB (CRESTOR) PO SCH (21:25)
[2017-06-08] MEDS: CitaloPRAM (CeleXA) 20 MG TAB PO SCH (21:26)
[2017-06-08] MEDS: MONTELUKAST 10 MG TAB PO SCH (21:26)
[2017-06-09] VITALS (10 sets, daily range): BP systolic 115–161; BP diastolic 63–98
[2017-06-09] MEDS ORDERED: GOLYTELY SOLN 4000 ML BTL PO ONE (06:00)
[2017-06-09] MEDS: metroNIDAZOLE (FLAGYL) 500 MG TAB PO SCH ×3 (06:36→21:43)
[2017-06-09] MEDS: LEVOTHYROXINE 88MCG TABLET (0.088 MG) PO SCH (06:36)
[2017-06-09] MEDS: CIPROFLOXACIN 500 MG TAB PO SCH ×2 (06:37→18:50)
[2017-06-09 07:24] LABS: MEAN CORPUSCULAR HEMOGLOBIN 33.6 pg (27.0-33.0); MEAN CORPUSCULAR HGB CONC 34.2 g/dl (32.0-36.5); MEAN CORPUSCULAR VOLUME 98.3 fl (80.0-96.0); RED CELL DISTRIBUTION WIDTH 12.5 % (11.5-14.5); WHITE BLOOD COUNT 6.5 K/mm3 (4.0-10.0)
[2017-06-09 07:43] LABS: ANION GAP 8 MEQ/L (8-16); BLOOD UREA NITROGEN 7 MG/DL (7-18); CALCIUM LEVEL 9.3 MG/DL (8.5-10.1); CARBON DIOXIDE LEVEL 27 MEQ/L (21-32); CHLORIDE LEVEL 107 MEQ/L (98-107); CREATININE FOR GFR 0.78 MG/DL (0.55-1.02); GLOMERULAR FILTRATION RATE > 60.0 (>51); GLUCOSE, FASTING 111 MG/DL (70-105); MAGNESIUM LEVEL 2.2 MG/DL (1.8-2.4); POTASSIUM SERUM 4.2 MEQ/L (3.5-5.1); SODIUM LEVEL 142 MEQ/L (136-145)
[2017-06-09] MEDS: SYMBICORT 160/4.5MCG INHALER 6GM INH SCH ×2 (08:23→19:21)
[2017-06-09] MEDS: MAGNESIUM OXIDE 400 MG TAB (MAG-OX) PO SCH (08:33)
[2017-06-09] MEDS: PANTOPRAZOLE 40MG TAB (PROTONIX) PO SCH (08:33)
[2017-06-09] MEDS: METOPROLOL SUCC (TopROL XL) 50MG **XL** TAB PO SCH ×2 (08:33→21:43)
--- NOTE | 2017-06-09 11:53 | IPNPDOC ---
Subjective Date Seen The patient was seen on 06/09/17. Subjective Chief Complaint/HPI The patient is a 57-year-old female admitted with a reason for visit of Enteritis. Pt states she is having many BMs due to the bowel regimen for colonoscopy scheduled with Dr. Buckner today. Denies any blood in stool. Mentions mild pain in left lower quadrant. Denies nausea, vomiting. No acute complaints. No reported events overnight. General: Reports: Normal Appetite Constitutional: Denies: Chills, Fever ENT: Denies: Head Aches, Dysphagia Pulmonary: Denies: Dyspnea, Cough Cardiovascular: Denies: Chest Pain, Palpitations, Edema, Lt Headedness Gastrointestinal: Reports: Abdominal Pain (left lower quadrant), Diarrhea (non- bloody), Denies: Nausea, Vomiting Genitourinary: Denies: Hematuria Musculoskeletal: Denies: Arm Pain, Hand Pain Neurological: Denies: Weakness, Numbness Psych: Reports: Mood Normal Objective Physical Examination General Exam: Positive: Alert, Cooperative, No Acute Distress Eye Exam: Positive: PERRLA, Conjunctiva & lids normal, EOMI, Negative: Sclera icteric ENT Exam: Positive: Atraumatic, Mucous membr. moist/pink Neck Exam: Positive: Supple, Negative: JVD Chest Exam: Positive: Clear to auscultation, Normal air movement, Negative: Rales, Rhonchi, Wheezing Heart Exam: Positive: Rate Normal, Regular Rhythm, Normal S1, Normal S2, Negative: Murmurs Abdomen Exam: Positive: Normal bowel sounds, Soft Extremity Exam: Positive: Normal pulses, Negative: Clubbing, Cyanosis, Edema Skin Exam: Positive: Nl turgor and temperature Neuro Exam: Positive: Normal Speech, Strength at 5/5 X4 ext Psych Exam: Positive: Mental status NL, Mood NL, Memory Intact, Oriented x 3 Assessment /Plan Assessment N/V/D -viral enterocolitis vs acute IBD episode vs possible malignancy -pt reports recent bowel movements were non-bloody -GI consulted. Appreciate their assistance. Colonoscopy scheduled for this 06/09 afternoon -blood cultures negative -Continues to be afebrile with vitals WNL and no white count. Continue PO Cipro , Flagyl -Clear liquid diet, then NPO 4 hours before colonoscopy per GI Macrocytosis -H&H stable entire admission. MCV elevated at 96. Folate & B12 levels pending Hypothyroidism -continue home med Synthroid HLD/CAD -home med Crestor, Toprol HTN -home med Cozaar. Hold HCTZ COPD -home meds Symbicort, Singulair, Proventil Depression -home med Celexa DVT prophylaxis -SCD/FLY Plan/VTE VTE Prophylaxis Ordered?: Yes VS, I&O, 24H, Fishbone Vital Signs/I&O Vital Signs Date Time Temp Pulse Resp B/P (MAP) Pulse Ox O2 Delivery O2 Flow Rate FiO2 06/09/17 08:33 64 118/78 06/09/17 08:00 97.2 18 100 Room Air I&O- Last 24 Hours up to 6 AM 06/09/17 06:00 Intake Total 2480 ml Balance 2480 ml Laboratory Data 24H LABS Laboratory Tests 2 06/09/17 07:06: Anion Gap 8, Glomerular Filtration Rate > 60.0, Blood Urea Nitrogen 7, Creatinine 0.78, Sodium Level 142, Potassium Level 4.2, Chloride Level 107, Carbon Dioxide Level 27, Calcium Level 9.3, Magnesium Level 2.2 CBC/BMP Laboratory Tests 06/08/17 14:56 06/09/17 07:06 Red Blood Count 3.80 L, Mean Corpuscular Volume 98.3 H, Mean Corpuscular Hemoglobin 33.6 H, Mean Corpuscular Hemoglobin Concent 34.2, Red Cell Distribution Width 12.5, Calcium Level 9.3 Microbiology Microbiology 06/05/17 Blood Culture - Final, Complete 06/05/17 Blood Culture - Final, Complete 06/05/17 Gastrointestinal Tract Panel (PCR) - Final, Complete 06/05/17 Stool Occult Blood ([facility]) - Final, Complete Attending Note Attending Note I have independently interviewed and examined this patient at the bedside and discussed the management plans with Dr. Ross as documented above. RAGINI ROSS DO Jun 09, 2017 11:53 MARTINE BLAKE MD Jun 10, 2017 05:43
--- NOTE | 2017-06-09 13:29 | IPN ---
DATE: 06/09/2017 Ms. Clark is feeling relatively well today. She is looking forward to her colonoscopy. She still has some left sided abdominal pain, but only when she touches her belly. Temperature 97.2. Pulse 74. Respiratory rate 18. Blood pressure 115/63. 100% on room air. Ins and outs notable for a positive fluid balance of 2480. Body mass index 37.5. She is awake and appropriately interactive, pleasantly conversant. Excellent historian. Mucous membranes moist. Neck supple. Breathing is symmetrical and rested. Heart is distant sounding. Normal S1, S2. Abdomen soft, doughy, active bowel sounds, nontender. White cell count 6.5, hemoglobin 12.8, and platelets 299. BUN 7, creatinine 0.8. ASSESSMENT: This is a 57-year-old with Enterocolitis. PLAN: 1. The patient is being followed by GI. Plan for colonoscopy today to further guide our therapy. Greatly appreciate their assistance. 2. The patient has macrocytosis. B12 and folate levels pending. 3. The patient has hypothyroidism. 4. The patient has coronary artery disease and hyperlipidemia. 5. The patient has hypertension. 6. The patient has chronic obstructive pulmonary disease (COPD). 7. The patient has depression.
[2017-06-09] MEDS ORDERED: PROPOFOL 200 MG/20 ML VIAL As Ordered ONE (13:47)
[2017-06-09] MEDS ORDERED: LIDOCAINE 2% INJ 100 MG/5 ML SDV (FOR ANES.) As Ordered ONE (13:47)
--- NOTE | 2017-06-09 14:17 | ROOR ---
Patient Name: Helen Clark Procedure Date: 06/09/2017 1:41 PM Date of : 1960 Age: 57 Room: [facility] Gender: Female Note Status: Finalized Procedure: Colonoscopy Indications: Hematochezia Providers: Bert Buckner MD Referring MD: Nelli Jimenez Requesting Provider: Medicines: Monitored Anesthesia Care Complications: No immediate complications. Procedure: Pre-Anesthesia Assessment: - Prior to the procedure, a History and Physical was performed, and patient medications and allergies were reviewed. The patient is competent. The risks and benefits of the procedure and the sedation options and risks were discussed with the patient. All questions were answered and informed consent was obtained. Patient identification and proposed procedure were verified by the physician, the nurse and the mechanics supervisor in the procedure room. Mental Status Examination: alert and oriented. Airway Examination: normal oropharyngeal airway and neck mobility. Respiratory Examination: clear to auscultation. CV Examination: normal. Prophylactic Antibiotics: The patient does not require prophylactic antibiotics. Prior Anticoagulants: The patient has taken no previous anticoagulant or antiplatelet agents. ASA Grade Assessment: II - A patient with mild systemic disease. After reviewing the risks and benefits, the patient was deemed in satisfactory condition to undergo the procedure. The anesthesia plan was to use monitored anesthesia care (MAC). Immediately prior to administration of medications, the patient was re-assessed for adequacy to receive sedatives. The heart rate, respiratory rate, oxygen saturations, blood pressure, adequacy of pulmonary ventilation, and response to care were monitored throughout the procedure. The physical status of the patient was re-assessed after the procedure. The Colonoscope was introduced through the anus and advanced to the terminal ileum, with identification of the appendiceal orifice and IC valve. The colonoscopy was performed without difficulty. The patient tolerated the procedure well. The quality of the bowel preparation was good. The terminal ileum, ileocecal valve, appendiceal orifice, and rectum were photographed. Scope insertion time was 3 minutes. Scope withdrawal time was 8 minutes. The total duration of the procedure was 12 minutes. Findings: The perianal and digital rectal examinations were normal. Segmental moderate inflammation characterized by altered vascularity, congestion (edema), erythema, granularity and shallow ulcerations was found in the descending colon. Biopsies were taken with a cold forceps for histology. Verification of patient identification for the specimen was done by the physician and nurse using the patient's name, date and medical record number. Estimated blood loss was minimal. A few sessile polyps were found in the recto-sigmoid colon. The polyps were 2 to 3 mm in size. These polyps were removed with a cold biopsy forceps. Resection and retrieval were complete. The retroflexed view of the distal rectum and anal verge was normal and showed no anal or rectal abnormalities. Impression: - Segmental moderate inflammation was found in the descending colon secondary to left-sided colitis. Biopsied. - A few 2 to 3 mm polyps at the recto-sigmoid colon, removed with a cold biopsy forceps. Resected and retrieved. - The distal rectum and anal verge are normal on retroflexion view. Recommendation: - Return patient to hospital ambriz for ongoing care. - The signs and symptoms of potential delayed complications were discussed with the patient. Return to normal activities tomorrow.. - Resume previous diet. - Continue present medications. - Post-Procedure Resumption of Antiplatelet Medications: Restart Plavix (clopidogrel) tomorrow 75 mg PO daily. - Await pathology results. - Repeat colonoscopy in 5 years for surveillance based on pathology results. - Return to GI clinic at appointment to be scheduled at the time of discharge or Call to clinic # [phone] to make appointment. - Return to primary care physician. Bert Buckner MD Bert Buckner MD 06/09/2017 2:16:51 PM This report has been signed electronically. Number of Addenda: 0 Note Initiated On: 06/09/2017 1:41 PM Estimated Blood Loss: Estimated blood loss was minimal.
[2017-06-09 16:46] LABS: FOLATE 11.1 NG/ML (>5.4)
[2017-06-09] MEDS: CitaloPRAM (CeleXA) 20 MG TAB PO SCH (21:43)
[2017-06-09] MEDS: LOSARTAN 50 MG TAB PO SCH (21:44)
[2017-06-09] MEDS: MONTELUKAST 10 MG TAB PO SCH (21:44)
[2017-06-10] VITALS: BP 108/55
[2017-06-10] MEDS: metroNIDAZOLE (FLAGYL) 500 MG TAB PO SCH (06:39)
[2017-06-10] MEDS: LEVOTHYROXINE 88MCG TABLET (0.088 MG) PO SCH (06:39)
[2017-06-10] MEDS: CIPROFLOXACIN 500 MG TAB PO SCH (06:40)
[2017-06-10] MEDS: SYMBICORT 160/4.5MCG INHALER 6GM INH SCH (07:37)
[2017-06-10 08:00] VITALS: BP 117/74
[2017-06-10 08:07] LABS: MEAN CORPUSCULAR HEMOGLOBIN 35.3 pg (27.0-33.0); MEAN CORPUSCULAR HGB CONC 36.1 g/dl (32.0-36.5); MEAN CORPUSCULAR VOLUME 97.8 fl (80.0-96.0); RED CELL DISTRIBUTION WIDTH 12.1 % (11.5-14.5); WHITE BLOOD COUNT 5.5 K/mm3 (4.0-10.0)
[2017-06-10 08:36] LABS: ANION GAP 12 MEQ/L (8-16); BLOOD UREA NITROGEN 9 MG/DL (7-18); CALCIUM LEVEL 9.2 MG/DL (8.5-10.1); CARBON DIOXIDE LEVEL 21 MEQ/L (21-32); CHLORIDE LEVEL 109 MEQ/L (98-107); CREATININE FOR GFR 0.67 MG/DL (0.55-1.02); GLOMERULAR FILTRATION RATE > 60.0 (>51); GLUCOSE, FASTING 105 MG/DL (70-105); MAGNESIUM LEVEL 2.2 MG/DL (1.8-2.4); POTASSIUM SERUM 4.1 MEQ/L (3.5-5.1); SODIUM LEVEL 142 MEQ/L (136-145)
[2017-06-10] MEDS ORDERED: FLAG500T PO (08:57)
[2017-06-10] MEDS ORDERED: CIPR-249 PO (08:57)
[2017-06-10 09:00] VITALS: BP 117/74
[2017-06-10] MEDS: MAGNESIUM OXIDE 400 MG TAB (MAG-OX) PO SCH (09:00)
[2017-06-10] MEDS: METOPROLOL SUCC (TopROL XL) 50MG **XL** TAB PO SCH (09:00)
[2017-06-10] MEDS: PANTOPRAZOLE 40MG TAB (PROTONIX) PO SCH (09:00)
[2017-06-10] MEDS ORDERED: PANT40TA2 PO (09:19)
--- NOTE | 2017-06-10 16:06 | DSES ---
DATE OF ADMISSION: 06/05/2017 DATE OF DISCHARGE: 06/10/2017 Specialists involved in her care include Dr. Buckner. Complications of her stay were none. Procedures during her stay were colonoscopy. Discharge diagnoses was: 1. Left-sided colitis. 2. Macrocytosis. 3. Hyperlipidemia. 4. Hypertension. 5. Chronic obstructive pulmonary disease (COPD). 6. Depression. 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 Did not require blood transfusion during her stay. Underwent colonoscopy, had left-sided colitis, and pathology samples were sent. Gastrointestinal (GI) panel was negative during her stay. On the day of discharge, she is tolerating a diet, she is feeling much better, has no complaints of pain, chest pain, shortness of breath. She is comfortable with discharge plan. Temperature 98.4, pulse 64, respiratory rate 18, blood pressure 117/74, 97% on room air. Awake, appropriately interactive, pleasantly conversant. Mucous membranes moist. Neck is supple. Breathing is symmetrical and rested. No accessory muscle use. Speaking in complete sentences. Heart is in a regular rate and rhythm. Abdomen is soft, doughy, nontender. White cell count 5.5, hemoglobin 13.2, and platelets of 280, BUN 9, creatinine 0.67. Discharge instructions include the following: She will followup with primary care within 1 week, Dr. Buckner within 10 days. Activity and diet as tolerated. - ciprofloxacin 500 mg by mouth twice a day, #14 - Flagyl 500 mg by mouth every 8 hours, #21 - Protonix 40 mg by mouth daily which she is going to try for 1 month - albuterol inhaled as needed - aspirin 81 mg by mouth daily - B complex tablet daily - Symbicort 160/4.5 two puffs inhaled twice a day - citalopram 20 mg by mouth daily at bedtime - Plavix 75 by mouth daily at bedtime - coenzyme Q10 supplement daily - Synthroid 88 mcg by mouth daily - losartan/hydrochlorothiazide 100/12.5 daily - magnesium oxide 400 mg daily - metoprolol succinate 50 mg by mouth twice a day - Singulair 10 mg by mouth daily at bedtime - Crestor 10 mg by mouth at bedtime every 2nd day
== END 2017-06-10 10:10 | disposition home or self-care (01) | DRG 249 ==
LOC: M ED 09:49 → M ED INP 20:07 → M PED 22:15
PROVIDERS: ADMIT Hospitalist; ATTEND Internal Medicine
PROC: 0DBN8ZX Excision of Sigmoid Colon, Via Natural or Artificial Opening Endoscopic, Diagnostic (ICD-10-PCS; 2017-06-09)
PROC: 0DBM8ZX Excision of Descending Colon, Via Natural or Artificial Opening Endoscopic, Diagnostic (ICD-10-PCS; principal; 2017-06-09 15:30)
DX: K52.9 Noninfective gastroenteritis and colitis, unspecified (principal); E83.51 Hypocalcemia; I10 Essential (primary) hypertension; J44.9 Chronic obstructive pulmonary disease, unspecified; E78.5 Hyperlipidemia, unspecified; F32.9 Major depressive disorder, single episode, unspecified; D75.89 Other specified diseases of blood and blood-forming organs; Z79.899 Other long term (current) drug therapy; Z79.82 Long term (current) use of aspirin; Z88.0 Allergy status to penicillin; Z88.8 Allergy status to other drugs, medicaments and biological substances; I25.10 Atherosclerotic heart disease of native coronary artery without angina pectoris; E03.9 Hypothyroidism, unspecified; Z96.651 Presence of right artificial knee joint; Z87.891 Personal history of nicotine dependence; K63.5 Polyp of colon

== ENCOUNTER → 2018-09-14 | Outpatient (CLI) | payer OTHER | LOC: M RAD 10:17 | DX: R91.8 Other nonspecific abnormal finding of lung field (principal) | CPT/HCPCS: 71250 ==

== ENCOUNTER 2019-06-16 09:12 | Inpatient (IN) | payer OTHER ==
[~2019-06-16] VITALS: Ht 167.6 cm; Wt 89.1 kg
[~2019-06-16 09:12] MED LIST changes: +ALBU17IN INH; +B-COTAB10 PO; +CIPR-249 PO; -CITA20TA4 PO; +CITA20TA6 PO; +CLOP75TA2 PO; +COQ-100C2 PO; +CRES10TA PO; +FLAG500T PO; +LOSA100T8 PO; -LOSA50TA20 PO; +LOSA50TA88 PO; +LOSARTAN 50 MG TAB PO SCH; +MAGN400T5 PO; +PANT40TA3 PO; +SING10TA32 PO; +SYMB16INH INH
[2019-06-16] MEDS: IPRATROPIUM 0.5MG/ALBUTEROL 2.5MG INH SOL UD 3ML (DUONEB)(J7620) NEB PRN ×3 (09:33→10:09)
[2019-06-16] MEDS ORDERED: ACETAMINOPHEN 325 MG TAB PO ONE (09:45)
[2019-06-16 10:05] LABS: BASO % 0.4 % (0.0-1.0); EOS % 0.4 % (0.0-3.0); HEMATOCRIT 40.3 % (36.0-47.0); HEMOGLOBIN 13.8 g/dl (12.0-15.5); LYMPH # 0.4 10^3/uL (1.5-5.0); LYMPH % 5.8 % (24.0-44.0); MEAN CORPUSCULAR HEMOGLOBIN 32.6 pg (27.0-33.0); MEAN CORPUSCULAR HGB CONC 34.2 g/dl (32.0-36.5); MEAN CORPUSCULAR VOLUME 95.3 fl (80.0-96.0); MONO # 0.3 10^3/uL (0.0-0.8); MONO % 4.3 % (0.0-5.0); NEUTROPHILS # 6.8 10^3/uL (1.5-8.5); NEUTROPHILS % 88.6 % (36.0-66.0); PLATELET COUNT, AUTOMATED 188 10^3/uL (150-450); RED BLOOD COUNT 4.23 10^6/uL (4.00-5.40); WHITE BLOOD COUNT 7.7 10^3/uL (4.0-10.0)
--- NOTE | 2019-06-16 10:11 | REP ---
Oral chest x-ray: Single view. History: Dyspnea and cough. Comparison chest x-ray: December 09, 2016. Findings: Oxygen delivery tubing and EKG electrodes are seen. The lungs are symmetrically aerated and clear. The heart is not enlarged. There are mild degenerative changes in the shoulders. Impression: No active disease. Electronically Signed by Sincere Rice MD 06/16/2019 10:02 A
[2019-06-16 10:29] LABS: ALBUMIN 3.7 GM/DL (3.2-5.2); ALT/SGPT 18 U/L (12-78); BILIRUBIN,DIRECT 0.2 MG/DL (0.0-0.2); BILIRUBIN,TOTAL 0.6 MG/DL (0.2-1.0); BLOOD UREA NITROGEN 10 MG/DL (7-18); CALCIUM LEVEL 8.9 MG/DL (8.8-10.2); CARBON DIOXIDE LEVEL 23 MEQ/L (21-32); CHLORIDE LEVEL 105 MEQ/L (98-107); CK-MB VALUE MASS < 1.0 NG/ML (<3.6); CPK CREATINE PHOSPHOKINASE 183 U/L (26-192); CREATININE FOR GFR 0.77 MG/DL (0.55-1.30); GLOMERULAR FILTRATION RATE > 60.0 (>45); GLUCOSE, FASTING 122 MG/DL (70-100); MB/CK RELATIVE INDEX 0.55 (< OR =4); NT-PRO BNP 145 PG/ML (<125); POTASSIUM SERUM 3.2 MEQ/L (3.5-5.1); SODIUM LEVEL 139 MEQ/L (136-145); THYROID STIMULATING HORMONE 0.523 uIU/ML (0.358-3.740); TOTAL PROTEIN 6.3 GM/DL (6.4-8.2); TROPONIN I < 0.02 NG/ML (< 0.10)
[2019-06-16] MEDS ORDERED: OSELTAMIVIR PHOSPHATE 75 MG CAP (TAMIFLU) PO ONE (12:15)
[2019-06-16] MEDS ORDERED: POTASSIUM CHLORIDE 10 MEQ SR TABLET PO ONE (12:15)
[2019-06-16] MEDS ORDERED: IPRATROPIUM 0.5MG/ALBUTEROL 2.5MG INH SOL UD 3ML (DUONEB)(J7620) NEB PRN (12:30)
[2019-06-16] MEDS ORDERED: METO1TAB33 PO (13:06)
[2019-06-16] MEDS ORDERED: VENTAER INH (13:06)
[2019-06-16 14:00] VITALS: BP 103/57
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
[2019-06-16] MEDS: ASPIRIN 81 MG ENTERIC TAB PO SCH (14:27)
[2019-06-16] MEDS: LEVOTHYROXINE 88MCG TABLET (0.088 MG) PO SCH (14:27)
[2019-06-16] MEDS: OSELTAMIVIR PHOSPHATE 75 MG CAP (TAMIFLU) PO SCH ×2 (14:28→20:10)
[2019-06-16] MEDS: methylPREDNISolone INJ 125 MG/2 ML VIAL (J2930) IV SCH ×2 (14:28→20:11)
[2019-06-16 14:30] VITALS: BP 100/57
[2019-06-16] MEDS: IPRATROPIUM 0.5MG/ALBUTEROL 2.5MG INH SOL UD 3ML (DUONEB)(J7620) NEB SCH ×2 (14:38→18:12)
[2019-06-16] MEDS ORDERED: ACETAMINOPHEN 500 MG TAB PO PRN (15:00)
[2019-06-16 16:00] VITALS: BP 103/58
[2019-06-16] MEDS ORDERED: SLF 3 ML SYR IV PRN (18:00)
[2019-06-16 18:43] VITALS: BP 117/56
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
[2019-06-16 20:00] VITALS: BP 133/77
[2019-06-16] MEDS: CLOPIDOGREL 75 MG TAB PO SCH (20:10)
[2019-06-16] MEDS: MONTELUKAST 10 MG TAB PO SCH (20:10)
[2019-06-16] MEDS: CitaloPRAM (CeleXA) 20 MG TAB PO SCH (20:11)
[2019-06-16] MEDS: METOPROLOL SUCC (TopROL XL) 50MG **XL** TAB PO SCH (20:11)
[2019-06-16] MEDS: SLF 3 ML SYR IV SCH (20:14)
--- NOTE | 2019-06-16 20:31 | ECGEPIP ---
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
[2019-06-16] MEDS: SYMBICORT 160/4.5MCG INHALER 6GM INH SCH (21:18)
[2019-06-17] MEDS: IPRATROPIUM 0.5MG/ALBUTEROL 2.5MG INH SOL UD 3ML (DUONEB)(J7620) NEB SCH ×4 (01:36→20:15)
[2019-06-17 04:00] VITALS: BP 121/68
[2019-06-17] MEDS: LEVOTHYROXINE 88MCG TABLET (0.088 MG) PO SCH (05:24)
[2019-06-17] MEDS: SLF 3 ML SYR IV SCH ×3 (05:24→21:52)
[2019-06-17 05:51] LABS: BLOOD UREA NITROGEN 8 MG/DL (7-18); CALCIUM LEVEL 9.1 MG/DL (8.8-10.2); CARBON DIOXIDE LEVEL 25 MEQ/L (21-32); CHLORIDE LEVEL 106 MEQ/L (98-107); CREATININE FOR GFR 0.66 MG/DL (0.55-1.30); GLOMERULAR FILTRATION RATE > 60.0 (>45); GLUCOSE, FASTING 143 MG/DL (70-100); POTASSIUM SERUM 3.7 MEQ/L (3.5-5.1); SODIUM LEVEL 138 MEQ/L (136-145)
[2019-06-17 06:35] LABS: HEMATOCRIT 39.1 % (36.0-47.0); HEMOGLOBIN 13.2 g/dl (12.0-15.5); MEAN CORPUSCULAR HEMOGLOBIN 32.1 pg (27.0-33.0); MEAN CORPUSCULAR HGB CONC 33.8 g/dl (32.0-36.5); MEAN CORPUSCULAR VOLUME 95.1 fl (80.0-96.0); PLATELET COUNT, AUTOMATED 206 10^3/uL (150-450); RED BLOOD COUNT 4.11 10^6/uL (4.00-5.40); WHITE BLOOD COUNT 12.5 10^3/uL (4.0-10.0)
[2019-06-17 07:23] VITALS: BP 106/66
[2019-06-17] MEDS: SYMBICORT 160/4.5MCG INHALER 6GM INH SCH ×2 (08:02→20:15)
[2019-06-17 08:45] VITALS: BP 113/55
[2019-06-17] MEDS: OSELTAMIVIR PHOSPHATE 75 MG CAP (TAMIFLU) PO SCH ×2 (08:47→21:51)
[2019-06-17] MEDS: methylPREDNISolone INJ 125 MG/2 ML VIAL (J2930) IV SCH ×2 (08:47→21:52)
[2019-06-17] MEDS: ASPIRIN 81 MG ENTERIC TAB PO SCH (08:47)
[2019-06-17] MEDS: METOPROLOL SUCC (TopROL XL) 50MG **XL** TAB PO SCH ×2 (09:00→21:52)
--- NOTE | 2019-06-17 09:54 | IPN ---
DATE: 06/17/2019 I attended Helen Clark here in the intensive care. Patient examined and the chart reviewed. She is awake, alert and appropriate. Feels better than yesterday, although she is dyspneic with activity. She did require oxygen during sleep last night but currently is 93% on room air. Maximum temperature (T-max) overnight 98.4, blood pressure 106-120 systolic, heart rate generally 60-70s with a sinus mechanism. White blood cell count 12.5, hemoglobin 13.2, platelet count 206,000. Electrolytes reviewed: Sodium 138, potassium 3.7, chloride 106, CO2 25. BUN and creatinine 0.66, glucose 143. On exam, she is awake, alert, and appropriate. Pupils are active, sclerae is clear. Trachea is in the midline. Chest diminished but symmetric expansion. There is mid expiratory squeak. There is actually some inspiratory squeak as well noted at the left apex. No crackles or egophony. Cardiac exam is regular with no gallop. Peripheral pulses palpable with no edema. No murmur. Abdomen soft, nontender with active bowel sounds. No convincing organomegaly or masses. Extremities without cyanosis or clubbing. Neurologically, she is awake, alert, and appropriate. Psych: Normal mood and affect. IMPRESSION: 1. Asthma with acute exacerbation. 2. Influenza A H3. At this point, I am agreeing with her current management. She is stable enough to be moved out of the intensive care unit. Medications have been reviewed and are written by the primary service. She remains on IV Solu-Medrol and I think that is reasonable given her exam. She is receiving Tamiflu. She tells me she made some phone calls this morning and there are 27 documented influenza cases in [place] where she just came from. Will continued as outlined above. Further recommendations will be made in the progress record as new information becomes available.
[2019-06-17 14:00] VITALS: BP 127/57
[2019-06-17 15:00] VITALS: BP 112/68
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
[2019-06-17] MEDS: CLOPIDOGREL 75 MG TAB PO SCH (21:51)
[2019-06-17] MEDS: MONTELUKAST 10 MG TAB PO SCH (21:51)
[2019-06-17] MEDS: CitaloPRAM (CeleXA) 20 MG TAB PO SCH (21:51)
[2019-06-17 22:00] VITALS: BP 118/67
[2019-06-18] MEDS: IPRATROPIUM 0.5MG/ALBUTEROL 2.5MG INH SOL UD 3ML (DUONEB)(J7620) NEB SCH ×2 (01:13→08:00)
[2019-06-18] MEDS: LEVOTHYROXINE 88MCG TABLET (0.088 MG) PO SCH (05:39)
[2019-06-18] MEDS: SLF 3 ML SYR IV SCH (05:39)
[2019-06-18 06:00] VITALS: BP 120/63
[2019-06-18 06:30] LABS: HEMATOCRIT 40.5 % (36.0-47.0); HEMOGLOBIN 13.2 g/dl (12.0-15.5); MEAN CORPUSCULAR HEMOGLOBIN 31.9 pg (27.0-33.0); MEAN CORPUSCULAR HGB CONC 32.6 g/dl (32.0-36.5); MEAN CORPUSCULAR VOLUME 97.8 fl (80.0-96.0); PLATELET COUNT, AUTOMATED 224 10^3/uL (150-450); RED BLOOD COUNT 4.14 10^6/uL (4.00-5.40); WHITE BLOOD COUNT 11.3 10^3/uL (4.0-10.0)
[2019-06-18 06:59] LABS: BLOOD UREA NITROGEN 12 MG/DL (7-18); CALCIUM LEVEL 9.1 MG/DL (8.8-10.2); CARBON DIOXIDE LEVEL 25 MEQ/L (21-32); CHLORIDE LEVEL 105 MEQ/L (98-107); CREATININE FOR GFR 0.69 MG/DL (0.55-1.30); GLOMERULAR FILTRATION RATE > 60.0 (>45); GLUCOSE, FASTING 135 MG/DL (70-100); POTASSIUM SERUM 3.9 MEQ/L (3.5-5.1); SODIUM LEVEL 137 MEQ/L (136-145)
[2019-06-18] MEDS: SYMBICORT 160/4.5MCG INHALER 6GM INH SCH (08:09)
[2019-06-18 09:18] VITALS: BP 134/78
[2019-06-18] MEDS: OSELTAMIVIR PHOSPHATE 75 MG CAP (TAMIFLU) PO SCH (09:18)
[2019-06-18] MEDS: methylPREDNISolone INJ 125 MG/2 ML VIAL (J2930) IV SCH (09:18)
[2019-06-18] MEDS: METOPROLOL SUCC (TopROL XL) 50MG **XL** TAB PO SCH (09:18)
[2019-06-18] MEDS: ASPIRIN 81 MG ENTERIC TAB PO SCH (09:18)
[2019-06-18] MEDS ORDERED: PRED20TA PO (09:57)
[2019-06-18] MEDS ORDERED: OSEL75CA2 PO (09:57)
--- NOTE | 2019-06-18 15:00 | IPN ---
DATE: 06/18/2019 I again attended Ms. Clark. She is feeling better this morning from a respiratory standpoint, but just feels overall sore and weak. Maximum temperature (T-max) overnight 98, blood pressure 120s, heart rate 60-70 with sinus mechanism, respiratory rate 15-17 without accessory muscle use. Laboratories have been reviewed. Hemoglobin 13.2, white blood cell count 11.3, platelet count 224,000. Electrolytes have been reviewed as well. She is 98% saturated on room air. On examination, she is awake, alert and appropriate. Membranes are moist, sclerae clear. Trachea is in midline. Chest diminished but symmetric expansion. There is the faintest of an expiratory wheeze, but no other focal adventitious breath sounds are identified. Heart exam is regular with no gallop. Peripheral pulses palpable with no edema. Abdomen is soft, nontender, with active bowel sounds. No organomegaly or mass. Extremities are without cyanosis or clubbing. Neurologically, she is awake, alert and appropriate. Psychiatric: Normal mood and affect. Pulse oximetry: 98% on room air. IMPRESSION: 1. Asthma status post recent exacerbation. 2. Influenza A. RECOMMENDATIONS: At this point, we can change her to oral steroids beginning tomorrow. She is getting hydrated. She is on Tamiflu and likely by tomorrow we can discontinue her isolation. At this point, I agree with her current regimen. She can probably discharge in the next 24-48 hours. She should have followup with David Erwin in our office in the next 2-3 weeks. Further recommendations will be made in the progress records as new information becomes available.
--- NOTE | 2019-06-18 20:23 | DS.PDOC ---
Discharge Summary General Date of Admission Jun 16, 2019 at 12:26 Date of Discharge June 18, 2019 Specialist/Consultants Involve: Arun JOHNSTON MD Discharge Summary PROCEDURES PERFORMED DURING STAY: [None]. ADMITTING DIAGNOSES: 1. [Influenza A]. DISCHARGE DIAGNOSES: 1. [Pulm infection due to influenza A, acute asthma exacerbation, acute hypoxic resp failure resolved, coronary artery disease, essential hypertension, dyslipidemia, hypothyroidism ]. COMPLICATIONS/CHIEF COMPLAINT: Asthma Exacerbation. HISTORY OF PRESENT ILLNESS/HOSPITAL COURSE: [59 year old female with history of asthma became ill with fever, shortness of breath, hypoxia, weakness and body aches upon return from a trip to [place]. Patient was found to be positive for Influenza A. Of interest, the location in [place] she had visited had had more than 20 cases. Her became ill as well. The patient was initially admitted to the ICU. She was placed on oxygen and treated with steroids, Tamiflu, and nebulization treatments. She gradually improved, was transitioned to med/surg and was weaned from oxygen to room air. She was transitioned to oral steroids and was stable to be discharged home. ]. DISCHARGE MEDICATIONS: Please see below. ALLERGIES: Please see below. PHYSICAL EXAMINATION ON DISCHARGE: General: Patient is still visibly ill appearing HENT: Neck is supple, she has mild scleral injection Cardiovascular: Regular rate and rhythm with a normal S1 and S2 Respiratory: She has "tight" breath sounds Abdomen: Soft, nontender, nondistended. Extremities: No peripheral edema, pedal pulses are palpable LABORATORY DATA: Please see below. IMAGING: PROGNOSIS: ACTIVITY: [As tolerated]. DIET: [As tolerated] DISCHARGE PLAN: [The patient is stable for discharge to home but she is still recovering. She will complete her treatment course of Tamiflu and complete her steroid taper. She will follow up with the Pulmonary group in 2 weeks.] DISPOSITION: Home, Self-Care. DISCHARGE INSTRUCTIONS: 1. . ITEMS TO FOLLOWUP ON ON OUTPATIENT: 1. . DISCHARGE CONDITION: [Stable]. TIME SPENT ON DISCHARGE: Greater than [40] minutes. Vital Signs/I&Os Vital Signs Date Time Temp Pulse Resp B/P (MAP) Pulse Ox O2 Delivery O2 Flow Rate FiO2 06/18/19 09:18 72 134/78 06/18/19 06:00 98.0 17 98 06/17/19 04:00 2.0 06/16/19 13:30 Room Air I&O- Last 24 Hours up to 6 AM 06/18/19 05:59 Intake Total 1020 ml Output Total 0 ml Balance 1020 ml Laboratory Data Labs 24H Laboratory Tests 2 06/18/19 05:39: Nucleated Red Blood Cells % (auto) 0.0, Anion Gap 7L, Glomerular Filtration Rate > 60.0, Blood Urea Nitrogen 12, Creatinine 0.69, Sodium Level 137, Potassium Level 3.9, Chloride Level 105, Carbon Dioxide Level 25, Calcium Level 9.1 CBC/BMP Laboratory Tests 06/18/19 05:39 Red Blood Count 4.14, Mean Corpuscular Volume 97.8 H, Mean Corpuscular Hemoglobin 31.9, Mean Corpuscular Hemoglobin Concent 32.6, Red Cell Distribution Width 12.5, Calcium Level 9.1 Microbiology Microbiology 06/16/19 Blood Culture - Preliminary, Resulted No Growth after 48 hours. All Specime... 06/16/19 Respiratory Virus Panel (PCR) ([facility]) - Final, Complete Influenza A H3 Discharge Medications Scheduled Aspirin (Aspirin EC) 81 Mg Tab, 81 MG PO DAILY, (Reported) Budesonide/Formoterol (Symbicort 160-4.5 Mcg Inhaler) 60 Puff/Inhaler Aers, 2 PUFF INH BID, (Reported) Citalopram Hydrobromide (Citalopram HBr) 20 Mg Tab, 20 MG PO QHS, (Reported) Clopidogrel Bisulfate (Clopidogrel) 75 Mg Tab, 75 MG PO QHS, (Reported) Levothyroxine Sodium (Levothyroxine Sodium) 88 Mcg Tab, 88 MCG PO DAILY, (Reported) Losartan/Hydrochlorothiazide (Losartan-Hctz 100-12.5 mg Tab) 1 Tab Tab, 1 TAB PO QHS, (Reported) Metoprolol Succinate (Metoprolol Succinate) 100 Mg Tab.er.24h, 50 MG PO BID, (Reported) Montelukast Sodium (Singulair) 10 Mg Tab, 10 MG PO QHS, (Reported) Oseltamivir Phosphate (Oseltamivir Phosphate) 75 Mg Capsule, 75 MG PO BID Prednisone (Prednisone) 20 Mg Tablet, 60 MG PO DAILY 3 TAB DAILY X3DAYS,2 TABS DAILY X3DAYS,1 TAB DAILY X3DAYS, 1/2 TAB DAILY X3DAYS Scheduled PRN Albuterol Sulf (Albuterol Sulfate) 2.5 Mg/3 Ml Nebu, 2.5 MG INH Q4H PRN for SHORTNESS OF BREATH, (Reported) Albuterol Sulfate (Ventolin Hfa) 18 Gm Hfa.aer.ad, 2 PUFF INH Q4H PRN for SHORTNESS OF BREATH, (Reported) Allergies Coded Allergies: Penicillins (Verified Allergy, Severe, THROAT SWELLING, 06/16/19) Cephalosporins (Verified Allergy, Intermediate, HIVES, 06/16/19) vancomycin (Verified Allergy, Intermediate, HIVES, 06/16/19) Mold (Blue) Cheese (Verified Allergy, Unknown, 09/25/14) rosuvastatin (Verified Adverse Reaction, Unknown, LEG CRAMPS, 06/16/19) BAYLEE MEHTA MD Jun 18, 2019 20:23
[2019-06-19] MEDS ORDERED: predniSONE 20 MG TAB PO SCH (09:00)
== END 2019-06-18 12:34 | disposition home or self-care (01) | DRG 113 ==
LOC: EDBD 09:12 → M ED 09:12 → M ED INP 12:26 → M ICU 13:50 → M MSPAV 06-17 15:03
PROVIDERS: ADMIT Family Medicine; ATTEND Internal Medicine
DX: J10.1 Influenza due to other identified influenza virus with other respiratory manifestations (principal); J45.901 Unspecified asthma with (acute) exacerbation; I11.9 Hypertensive heart disease without heart failure; Z79.82 Long term (current) use of aspirin; Z79.899 Other long term (current) drug therapy; Z88.0 Allergy status to penicillin; Z88.8 Allergy status to other drugs, medicaments and biological substances; I25.10 Atherosclerotic heart disease of native coronary artery without angina pectoris; E03.9 Hypothyroidism, unspecified; F32.9 Major depressive disorder, single episode, unspecified; Z95.2 Presence of prosthetic heart valve

== ENCOUNTER → 2019-09-09 | Outpatient (CLI) | payer OTHER ==
[~2019-09-09] MED LIST changes: -LOSARTAN 50 MG TAB PO SCH; +METO1TAB33 PO; +OSEL75CA2 PO; +VENTAER INH
--- NOTE | 2019-09-09 15:54 | REP ---
Clinical: Abnormal lung findings. Technique: Axial noncontrast images from the thoracic inlet to the upper abdomen with coronal and sagittal re-formations. Comparison: 09/14/2018. Findings: Bilateral lung celaya are well-aerated and clear. Small calcified granuloma in the right middle lobe. No acute consolidation, significant nodule, or mass lesion. No effusion. No pneumothorax. Tracheobronchial tree is patent. No adenopathy. Thoracic aorta without aneurysm. Atherosclerotic changes to the coronary arteries noted without cardiomegaly or pericardial effusion. Musculoskeletal structures are intact. Impression: No mediastinal or pleuroparenchymal process appreciated. Electronically Signed by David Hassan MD 09/09/2019 03:46 P
== END ==
LOC: M RAD 15:15
PROVIDERS: ATTEND Physician Assistant
DX: R91.8 Other nonspecific abnormal finding of lung field (principal)

== ENCOUNTER 2020-05-03 11:40 | Day surgery (SDC) | payer OTHER ==
[~2020-05-03] VITALS: Ht 167.6 cm; Wt 97.1 kg
[~2020-05-03 11:40] MED LIST changes: +HYDR12.55 PO; +PANT40TA29 PO; -PANT40TA3 PO; +PREV1CAP PO; +ROSU10TA6 PO
[2020-05-03] MEDS ORDERED: propofoL 200 MG/20 ML VIAL As Ordered ONE ×2 (12:20→14:20)
[2020-05-03] MEDS ORDERED: LIDOCAINE 2% 100MG/5ML SDV (FOR ANES.) As Ordered ONE (12:20)
--- NOTE | 2020-06-13 11:26 | ROOR ---
Patient Name: Helen Clark Procedure Date: 05/03/2020 1:42 PM Date of : 1960 Age: 59 Room: [facility] Gender: Female Note Status: Finalized Procedure: Colonoscopy Indications: Rectal bleeding Providers: Chung Wolf MD Referring MD: Nelli Jimenez Requesting Provider: Medicines: Monitored Anesthesia Care Complications: No immediate complications. Procedure: Pre-Anesthesia Assessment: - Prior to the procedure, a History and Physical was performed, and patient medications and allergies were reviewed. The patient is competent. The risks and benefits of the procedure and the sedation options and risks were discussed with the patient. All questions were answered and informed consent was obtained. Patient identification and proposed procedure were verified by the physician, the nurse and the anesthesiologist in the procedure room. Mental Status Examination: alert and oriented. Prophylactic Antibiotics: The patient does not require prophylactic antibiotics. Prior Anticoagulants: The patient has taken no previous anticoagulant or antiplatelet agents. ASA Grade Assessment: III - A patient with severe systemic disease. After reviewing the risks and benefits, the patient was deemed in satisfactory condition to undergo the procedure. The anesthesia plan was to use monitored anesthesia care (MAC). Immediately prior to administration of medications, the patient was re-assessed for adequacy to receive sedatives. The heart rate, respiratory rate, oxygen saturations, blood pressure, adequacy of pulmonary ventilation, and response to care were monitored throughout the procedure. The physical status of the patient was re-assessed after the procedure. The Colonoscope was introduced through the anus and advanced to the cecum, identified by appendiceal orifice and ileocecal valve. The colonoscopy was somewhat difficult due to a tortuous colon. The patient tolerated the procedure well. The quality of the bowel preparation was fair. Findings: The perianal and digital rectal examinations were normal. A patchy area of short serpigenous lines of punctate hemorrhage of the mucosa was found in the proximal ascending colon and in the cecum. Biopsies were taken with a cold forceps for histology. Non-bleeding internal hemorrhoids were found during endoscopy. The hemorrhoids were small and Grade I (internal hemorrhoids that do not prolapse). Impression: - Preparation of the colon was fair. - Abnormal mucosa in the proximal ascending colon and in the cecum. Biopsied. - Non-bleeding internal hemorrhoids. Recommendation: - Discharge patient to home. - Resume previous diet. - Continue present medications. - Await pathology results. - Return to my office in 1 week. Chung Wolf MD Chung Wolf MD 05/03/2020 2:38:19 PM Number of Addenda: 0 Note Initiated On: 05/03/2020 1:42 PM Estimated Blood Loss: Estimated blood loss was minimal.
== END 2020-05-03 14:45 | disposition home or self-care (01) ==
LOC: M OPP 11:40
PROVIDERS: ATTEND Surgery
DX: K63.89 Other specified diseases of intestine (principal); K64.8 Other hemorrhoids; K62.5 Hemorrhage of anus and rectum; Z79.82 Long term (current) use of aspirin; Z79.899 Other long term (current) drug therapy; Z88.1 Allergy status to other antibiotic agents; Z88.0 Allergy status to penicillin; Z88.8 Allergy status to other drugs, medicaments and biological substances; Z91.018 Allergy to other foods; Z87.891 Personal history of nicotine dependence

== ENCOUNTER 2020-07-13 14:15 | Emergency (ER) | payer OTHER ==
[~2020-07-13] VITALS: Ht 167.6 cm; Wt 98.5 kg
[2020-07-13] MEDS ORDERED: diphenhydrAMINE 50MG/ML VIAL (J1200) IV ONE (14:30)
[2020-07-13] MEDS ORDERED: FAMOTIDINE INJ 20MG/2ML VIAL (S0028 PER 1) IVP ONE (14:30)
[2020-07-13] MEDS ORDERED: NS 1,000 ML IV ONE (14:30)
[2020-07-13] MEDS ORDERED: methylPREDNISolone 125MG 2ML VIAL IV ONE (14:30)
[2020-07-13] MEDS ORDERED: PRED20TA PO (16:43)
[2020-07-13] MEDS ORDERED: BENA25CA4 PO (16:43)
[2020-07-13 16:54] VITALS: BP 125/65
== END 2020-07-13 17:01 | disposition home or self-care (01) ==
LOC: M ED 14:15
DX: T63.441A Toxic effect of venom of bees, accidental (unintentional), initial encounter (principal); I11.9 Hypertensive heart disease without heart failure; K21.9 Gastro-esophageal reflux disease without esophagitis; J45.909 Unspecified asthma, uncomplicated; Z88.0 Allergy status to penicillin; Z88.1 Allergy status to other antibiotic agents; Z79.82 Long term (current) use of aspirin; Z79.51 Long term (current) use of inhaled steroids; Z79.899 Other long term (current) drug therapy
CPT/HCPCS: 93041; 94760; 96361; 96374; 96375; 99284; J1200; J2930

== ENCOUNTER → 2020-12-14 | Outpatient (CLI) | payer OTHER ==
[~2020-12-14] MED LIST changes: +BENA25CA4 PO
--- NOTE | 2020-12-14 10:28 | REP ---
INDICATION: PERSONAL HISTORY OF NICOTINE DEPENDENCE COMPARISON: 09/09/2019, 09/14/2018 TECHNIQUE: Axial noncontrast images from the thoracic inlet to the upper abdomen using low-dose lung screening technique (LDCT). FINDINGS: Stable 3 mm nodular scar in the right upper lobe (image 19) and stable calcified granuloma in the right middle lobe (image 51). Bilateral lung celaya are otherwise well aerated and without acute consolidation, new suspicious nodule or mass lesion. No pleural effusion. No pneumothorax. Tracheobronchial tree is patent. IMPRESSION: Lung-RADS category 2. Stable findings. Management recommendations include annual low-dose CT surveillance. <Electronically signed by David Hassan > 12/14/20 0005
== END ==
LOC: M RAD 08:56
PROVIDERS: ATTEND Physician Assistant
DX: Z12.2 Encounter for screening for malignant neoplasm of respiratory organs (principal); Z87.891 Personal history of nicotine dependence; J84.10 Pulmonary fibrosis, unspecified

== ENCOUNTER → 2022-04-28 | Outpatient (CLI) | payer MEDICARE, BC ==
[~2022-04-28] MED LIST changes: +ALBU2.5V10 INH; -ALBU83IN INH; +LASI20TA3 PO; +LOSA100T45 PO; +LOSA50TA28 PO; -LOSA50TA88 PO; +NEUR300C PO; +NOXI1TAB PO
== END ==
LOC: M LABSMTC 10:17
PROVIDERS: ATTEND Anesthesiology
DX: Z01.812 Encounter for preprocedural laboratory examination (principal); Z20.822 Contact with and (suspected) exposure to COVID-19

== ENCOUNTER 2022-05-01 11:14 | Day surgery (SDC) | payer MEDICARE, BC ==
[~2022-05-01] VITALS: Ht 167.6 cm; Wt 103.4 kg
[~2022-05-01 11:14] MED LIST changes: +NS 1,000 ML IV ONE
[2022-05-01] MEDS ORDERED: LIDOCAINE 2% 100MG/5ML SDV (FOR ANES.) As Ordered ONE (13:04)
[2022-05-01 13:35] VITALS: BP 112/68
[2022-05-01] MEDS ORDERED: propofoL 200 MG/20 ML VIAL As Ordered ONE (13:35)
== END 2022-05-01 13:45 | disposition home or self-care (01) ==
LOC: M OPP 11:14
PROVIDERS: ATTEND Surgery
DX: K22.89 Other specified disease of esophagus (principal); F45.8 Other somatoform disorders; I10 Essential (primary) hypertension; K21.00 Gastro-esophageal reflux disease with esophagitis, without bleeding; M51.36 Other intervertebral disc degeneration, lumbar region; J44.9 Chronic obstructive pulmonary disease, unspecified; F32.9 Major depressive disorder, single episode, unspecified; F41.9 Anxiety disorder, unspecified; Z86.74 Personal history of sudden cardiac arrest; Z95.5 Presence of coronary angioplasty implant and graft; Z79.02 Long term (current) use of antithrombotics/antiplatelets; Z79.51 Long term (current) use of inhaled steroids; Z79.82 Long term (current) use of aspirin; Z79.891 Long term (current) use of opiate analgesic; Z79.899 Other long term (current) drug therapy; Z88.0 Allergy status to penicillin; Z88.1 Allergy status to other antibiotic agents; Z88.2 Allergy status to sulfonamides; Z91.018 Allergy to other foods

== ENCOUNTER 2022-06-09 14:52 | Inpatient (IN) | payer MEDICARE, BC ==
[2022-06-09] VITALS (7 sets, daily range): BP systolic 123–169; BP diastolic 56–83; O2SAT 90–93
[~2022-06-09] VITALS: Ht 172.7 cm; Wt 104.4 kg
[~2022-06-09 14:52] MED LIST changes: -NS 1,000 ML IV ONE
[2022-06-09 15:19] LABS: VENOUS BASE EXCESS -2.3 (-2.0-2.0); VENOUS HCO3 22.2 MEQ/L (23.0-27.0); VENOUS O2 SATURATION 89.3 % (60.0-80.0); VENOUS PARTIAL PRESSURE CO2 37.7 mmHg (38.0-50.0); VENOUS PARTIAL PRESSURE O2 55.9 mmHg (30.0-50.0); VENOUS PH 7.388 UNITS (7.330-7.430); VENOUS STANDARD HCO3 22.3 MEQ/L; VENOUS TOTAL CO2 23.4 MEQ/L (24.0-28.0)
[2022-06-09 15:22] LABS: BASO % 0.3 % (0.0-1.0); HEMATOCRIT 42.2 % (36.0-47.0); HEMOGLOBIN 14.4 g/dl (12.0-15.5); LYMPH # 0.7 10^3/uL (1.5-5.0); LYMPH % 8.4 % (24.0-44.0); MEAN CORPUSCULAR HGB CONC 34.1 g/dl (32.0-36.5); MEAN CORPUSCULAR VOLUME 99.8 fl (80.0-96.0); MONO # 0.3 10^3/uL (0.0-0.8); MONO % 3.8 % (2.0-8.0); PLATELET COUNT, AUTOMATED 252 10^3/uL (150-450); RED BLOOD COUNT 4.23 10^6/uL (4.00-5.40)
[2022-06-09] MEDS: COMBIVENT RESPIMAT 100-20MCG INHALER 4GM INH SCH ×3 (15:54→18:09)
[2022-06-09 15:58] LABS: BILIRUBIN,DIRECT 0.1 MG/DL (0.0-0.2); BILIRUBIN,TOTAL 0.4 MG/DL (0.2-1.0); CALCIUM LEVEL 9.6 MG/DL (8.8-10.2); CREATININE FOR GFR 1.06 MG/DL (0.55-1.30); GLOMERULAR FILTRATION RATE 55.7 (>45); POTASSIUM SERUM 3.6 MEQ/L (3.5-5.1); THYROID STIMULATING HORMONE 0.286 uIU/ML (0.358-3.740); TOTAL PROTEIN 7.1 GM/DL (6.4-8.2)
[2022-06-09 16:41] LABS: RSV AMPLIFICATION NEGATIVE (NEGATIVE)
[2022-06-09] MEDS ORDERED: methylPREDNISolone 125MG 2ML VIAL IV ONE (17:15)
[2022-06-09] MEDS ORDERED: POTASSIUM CHLORIDE 10MEQ SR TABLET PO ONE (17:20)
[2022-06-09] MEDS ORDERED: MAG SULF 1GM/100ML (MAG RUN) 1 GM in IV 1 EA IV ONE (17:20)
[2022-06-09] MEDS ORDERED: METO1TAB7 PO (18:23)
[2022-06-09] MEDS ORDERED: FURO40TA2 PO (18:23)
[2022-06-09] MEDS ORDERED: CALC600T60 PO (18:27)
[2022-06-09] MEDS ORDERED: POTA99CA2 PO (18:27)
[2022-06-09] MEDS ORDERED: BUDE0.5S6 INH (18:27)
[2022-06-09] MEDS ORDERED: HOME MED LIST COMPLETE! XX SCH (18:30)
[2022-06-09] MEDS ORDERED: ERGO500029 PO (18:53)
[2022-06-09] MEDS: FUROSEMIDE 40 MG TAB PO SCH (19:35)
[2022-06-09] MEDS ORDERED: ALBUTEROL SULFATE 2.5 MG/0.5 ML INH NEB SOLN NEB ONE (20:00)
[2022-06-09] MEDS: MAG SULF 1GM/100ML (MAG RUN) 1 GM in IV 1 EA IV SCH ×2 (20:02→20:19)
[2022-06-09] MEDS: ROSUVASTATIN 10 MG TAB (CRESTOR) PO SCH (20:23)
[2022-06-09] MEDS: ENOXAPARIN 40MG/0.4ML SYRINGE (J1650 PER 10MG) SC SCH (20:23)
[2022-06-09] MEDS: CLOPIDOGREL 75 MG TAB PO SCH (20:23)
[2022-06-09] MEDS: ASPIRIN 81 MG CHEW TABLET PO SCH (20:23)
[2022-06-09] MEDS: GABAPENTIN 300 MG CAP PO SCH (20:23)
[2022-06-09] MEDS: CitaloPRAM (CeleXA) 20 MG TAB PO SCH (20:23)
[2022-06-09] MEDS: MONTELUKAST 10 MG TAB PO SCH (20:23)
[2022-06-09] MEDS: LOSARTAN 50MG TABLET PO SCH (20:24)
[2022-06-09] MEDS: METOPROLOL SUCC (TopROL XL) 50MG **XL** TAB PO SCH (20:24)
[2022-06-09] MEDS: ALBUTEROL SULFATE 2.5 MG/0.5 ML INH NEB SOLN NEB PRN (22:08)
[2022-06-10] VITALS (11 sets, daily range): BP systolic 123–150; BP diastolic 58–86; O2SAT 90–96
[2022-06-10] MEDS: ALBUTEROL SULFATE 2.5 MG/0.5 ML INH NEB SOLN NEB PRN ×4 (03:02→17:10)
[2022-06-10 04:45] LABS: ALBUMIN 3.9 GM/DL (3.2-5.2); ALT/SGPT 23 U/L (12-78); BILIRUBIN,TOTAL 0.4 MG/DL (0.2-1.0); BLOOD UREA NITROGEN 11 MG/DL (7-18); CALCIUM LEVEL 9.3 MG/DL (8.8-10.2); CARBON DIOXIDE LEVEL 25 MEQ/L (21-32); CHLORIDE LEVEL 103 MEQ/L (98-107); CREATININE FOR GFR 0.96 MG/DL (0.55-1.30); GLOMERULAR FILTRATION RATE > 60.0 (>45); GLUCOSE, FASTING 148 MG/DL (70-100); SODIUM LEVEL 136 MEQ/L (136-145); TOTAL PROTEIN 6.7 GM/DL (6.4-8.2)
[2022-06-10] MEDS: LEVOTHYROXINE 88MCG TABLET (0.088 MG) PO SCH (05:05)
[2022-06-10 07:36] LABS: BASO % 0.1 % (0.0-1.0); HEMATOCRIT 41.6 % (36.0-47.0); HEMOGLOBIN 13.7 g/dl (12.0-15.5); LYMPH # 0.6 10^3/uL (1.5-5.0); LYMPH % 6.2 % (24.0-44.0); MEAN CORPUSCULAR HEMOGLOBIN 33.6 pg (27.0-33.0); MEAN CORPUSCULAR HGB CONC 32.9 g/dl (32.0-36.5); MONO # 0.2 10^3/uL (0.0-0.8); MONO % 1.7 % (2.0-8.0); NEUTROPHILS # 9.2 10^3/uL (1.5-8.5); NEUTROPHILS % 91.2 % (36.0-66.0); PLATELET COUNT, AUTOMATED 257 10^3/uL (150-450); RED BLOOD COUNT 4.08 10^6/uL (4.00-5.40); WHITE BLOOD COUNT 10.1 10^3/uL (4.0-10.0)
[2022-06-10] MEDS: ACETAMINOPHEN TAB 650MG DOSE (2X325MG) PO PRN ×2 (08:46→19:00)
[2022-06-10] MEDS: IPRATROPIUM 0.5MG/ALBUTEROL 2.5MG INH SOL UD 3ML (DUONEB) NEB SCH ×5 (09:00→23:30)
[2022-06-10] MEDS ORDERED: predniSONE 20 MG TAB PO SCH (09:00)
[2022-06-10] MEDS ORDERED: VITAMIN D 1,000 INTERNATIONAL UNITS TABLET PO SCH (09:00)
[2022-06-10] MEDS: BUDESONIDE 0.25 MG/2 ML INHALATION SUSPENSION INH SCH ×2 (09:08→19:14)
[2022-06-10] MEDS: PANTOPRAZOLE 40MG TAB (PROTONIX) PO SCH (09:15)
[2022-06-10] MEDS: FUROSEMIDE 40 MG TAB PO SCH ×2 (09:15→17:04)
[2022-06-10] MEDS: GABAPENTIN 300 MG CAP PO SCH ×2 (09:15→21:35)
[2022-06-10] MEDS: methylPREDNISolone 125MG 2ML VIAL IV SCH ×2 (09:16→21:34)
[2022-06-10] MEDS ORDERED: AZITHROMYCIN INJ 500 MG, VIAL MATE ADAPTER 1 EACH in NS 250 ML IV SCH (10:00)
[2022-06-10] MEDS ORDERED: TETANUS/DIPHTHERIA TOX ADSORB ADULT 0.5ML SYR/VIAL IM ONE (12:00)
[2022-06-10] MEDS ORDERED: BOOSTRIX/ADACEL VACCINE (DIPHTH/PERTUSS/ACELL/TETANUS) 0.5ML SYR IM.IMMUN ONE (15:00)
[2022-06-10] MEDS: ENOXAPARIN 40MG/0.4ML SYRINGE (J1650 PER 10MG) SC SCH (21:33)
[2022-06-10] MEDS: ASPIRIN 81 MG CHEW TABLET PO SCH (21:34)
[2022-06-10] MEDS: CitaloPRAM (CeleXA) 20 MG TAB PO SCH (21:34)
[2022-06-10] MEDS: CLOPIDOGREL 75 MG TAB PO SCH (21:34)
[2022-06-10] MEDS: MONTELUKAST 10 MG TAB PO SCH (21:34)
[2022-06-10] MEDS: METOPROLOL SUCC (TopROL XL) 50MG **XL** TAB PO SCH (21:35)
[2022-06-10] MEDS: ROSUVASTATIN 10 MG TAB (CRESTOR) PO SCH (21:35)
[2022-06-10] MEDS: LOSARTAN 50MG TABLET PO SCH (21:35)
[2022-06-10] MEDS ORDERED: traMADol 50 MG TAB PO ONE (22:25)
[2022-06-11] VITALS (8 sets, daily range): BP systolic 129–168; BP diastolic 66–84; O2SAT 91–94
[2022-06-11] MEDS: IPRATROPIUM 0.5MG/ALBUTEROL 2.5MG INH SOL UD 3ML (DUONEB) NEB SCH ×6 (04:00→23:08)
[2022-06-11] MEDS: LEVOTHYROXINE 88MCG TABLET (0.088 MG) PO SCH (05:22)
[2022-06-11] MEDS: ALBUTEROL SULFATE 2.5 MG/0.5 ML INH NEB SOLN NEB PRN (05:32)
[2022-06-11 05:42] LABS: BASO % 0.1 % (0.0-1.0); HEMATOCRIT 40.4 % (36.0-47.0); HEMOGLOBIN 13.2 g/dl (12.0-15.5); LYMPH # 0.8 10^3/uL (1.5-5.0); LYMPH % 6.2 % (24.0-44.0); MEAN CORPUSCULAR HEMOGLOBIN 33.7 pg (27.0-33.0); MEAN CORPUSCULAR HGB CONC 32.7 g/dl (32.0-36.5); MEAN CORPUSCULAR VOLUME 103.1 fl (80.0-96.0); MONO # 0.5 10^3/uL (0.0-0.8); MONO % 3.9 % (2.0-8.0); NEUTROPHILS # 12.1 10^3/uL (1.5-8.5); NEUTROPHILS % 89.1 % (36.0-66.0); PLATELET COUNT, AUTOMATED 256 10^3/uL (150-450); RED BLOOD COUNT 3.92 10^6/uL (4.00-5.40); WHITE BLOOD COUNT 13.6 10^3/uL (4.0-10.0)
[2022-06-11 06:03] LABS: BLOOD UREA NITROGEN 15 MG/DL (7-18); CALCIUM LEVEL 9.3 MG/DL (8.8-10.2); CARBON DIOXIDE LEVEL 29 MEQ/L (21-32); CHLORIDE LEVEL 104 MEQ/L (98-107); CREATININE FOR GFR 0.87 MG/DL (0.55-1.30); GLOMERULAR FILTRATION RATE > 60.0 (>45); GLUCOSE, FASTING 150 MG/DL (70-100); POTASSIUM SERUM 4.3 MEQ/L (3.5-5.1); SODIUM LEVEL 136 MEQ/L (136-145)
[2022-06-11] MEDS: BUDESONIDE 0.25 MG/2 ML INHALATION SUSPENSION INH SCH ×2 (07:27→19:13)
[2022-06-11] MEDS: methylPREDNISolone 125MG 2ML VIAL IV SCH ×2 (08:20→20:50)
[2022-06-11] MEDS: PANTOPRAZOLE 40MG TAB (PROTONIX) PO SCH (08:20)
[2022-06-11] MEDS: GABAPENTIN 300 MG CAP PO SCH ×2 (08:20→20:50)
[2022-06-11] MEDS: FUROSEMIDE 40 MG TAB PO SCH ×2 (08:20→17:32)
[2022-06-11] MEDS ORDERED: SODIUM CHLORIDE HYPERTONIC 3% 15ML NEB SOL INH PRN (09:00)
[2022-06-11] MEDS: AZITHROMYCIN 250MG TABLET PO SCH (10:07)
[2022-06-11] MEDS ORDERED: LIDOCAINE 1% MDV 20ML VIAL As Ordered ONE (11:36)
[2022-06-11] MEDS: ACETAMINOPHEN TAB 650MG DOSE (2X325MG) PO PRN (12:57)
[2022-06-11] MEDS ORDERED: SODIUM CHLORIDE 0.9% INJ 10 ML SYR IV SCH (17:20)
[2022-06-11] MEDS: SODIUM CHLORIDE 0.9% INJ 10 ML SYR IV PRN (17:33)
[2022-06-11] MEDS: ENOXAPARIN 40MG/0.4ML SYRINGE (J1650 PER 10MG) SC SCH (20:48)
[2022-06-11] MEDS: ASPIRIN 81 MG CHEW TABLET PO SCH (20:49)
[2022-06-11] MEDS: LOSARTAN 50MG TABLET PO SCH (20:49)
[2022-06-11] MEDS: MONTELUKAST 10 MG TAB PO SCH (20:50)
[2022-06-11] MEDS: CitaloPRAM (CeleXA) 20 MG TAB PO SCH (20:50)
[2022-06-11] MEDS: METOPROLOL SUCC (TopROL XL) 50MG **XL** TAB PO SCH (20:50)
[2022-06-11] MEDS: CLOPIDOGREL 75 MG TAB PO SCH (20:50)
[2022-06-11] MEDS: ROSUVASTATIN 10 MG TAB (CRESTOR) PO SCH (20:50)
[2022-06-12] VITALS (29 sets, daily range): BP systolic 115–141; BP diastolic 59–76; O2SAT 87–96
[2022-06-12] MEDS: IPRATROPIUM 0.5MG/ALBUTEROL 2.5MG INH SOL UD 3ML (DUONEB) NEB SCH ×7 (03:08→23:11)
[2022-06-12] MEDS: LEVOTHYROXINE 88MCG TABLET (0.088 MG) PO SCH (06:03)
[2022-06-12 06:06] LABS: BASO % 0.1 % (0.0-1.0); HEMATOCRIT 39.3 % (36.0-47.0); HEMOGLOBIN 13.1 g/dl (12.0-15.5); LYMPH # 1.1 10^3/uL (1.5-5.0); MEAN CORPUSCULAR HEMOGLOBIN 33.4 pg (27.0-33.0); MEAN CORPUSCULAR HGB CONC 33.3 g/dl (32.0-36.5); MEAN CORPUSCULAR VOLUME 100.3 fl (80.0-96.0); MONO # 0.5 10^3/uL (0.0-0.8); MONO % 4.2 % (2.0-8.0); NEUTROPHILS # 10.4 10^3/uL (1.5-8.5); PLATELET COUNT, AUTOMATED 233 10^3/uL (150-450); RED BLOOD COUNT 3.92 10^6/uL (4.00-5.40)
[2022-06-12] MEDS: BUDESONIDE 0.25 MG/2 ML INHALATION SUSPENSION INH SCH ×2 (07:10→19:05)
[2022-06-12 07:33] LABS: BLOOD UREA NITROGEN 17 MG/DL (7-18); CALCIUM LEVEL 9.1 MG/DL (8.8-10.2); CARBON DIOXIDE LEVEL 28 MEQ/L (21-32); CHLORIDE LEVEL 102 MEQ/L (98-107); CREATININE FOR GFR 0.79 MG/DL (0.55-1.30); GLOMERULAR FILTRATION RATE > 60.0 (>45); GLUCOSE, FASTING 138 MG/DL (70-100); POTASSIUM SERUM 4.3 MEQ/L (3.5-5.1); SODIUM LEVEL 137 MEQ/L (136-145)
[2022-06-12] MEDS: methylPREDNISolone 125MG 2ML VIAL IV SCH (08:28)
[2022-06-12] MEDS: PANTOPRAZOLE 40MG TAB (PROTONIX) PO SCH (08:29)
[2022-06-12] MEDS: GABAPENTIN 300 MG CAP PO SCH ×2 (08:29→20:22)
[2022-06-12] MEDS: AZITHROMYCIN 250MG TABLET PO SCH (08:29)
[2022-06-12] MEDS: FUROSEMIDE 40 MG TAB PO SCH ×2 (08:29→16:02)
[2022-06-12] MEDS: ACETAMINOPHEN TAB 650MG DOSE (2X325MG) PO PRN ×2 (10:00→14:23)
[2022-06-12] MEDS ORDERED: IBUPROFEN 400MG TAB PO ONE (14:45)
[2022-06-12] MEDS: ENOXAPARIN 40MG/0.4ML SYRINGE (J1650 PER 10MG) SC SCH (20:22)
[2022-06-12] MEDS: ASPIRIN 81 MG CHEW TABLET PO SCH (20:22)
[2022-06-12] MEDS: MONTELUKAST 10 MG TAB PO SCH (20:22)
[2022-06-12] MEDS: CitaloPRAM (CeleXA) 20 MG TAB PO SCH (20:23)
[2022-06-12] MEDS: METOPROLOL SUCC (TopROL XL) 50MG **XL** TAB PO SCH (20:23)
[2022-06-12] MEDS: CLOPIDOGREL 75 MG TAB PO SCH (20:23)
[2022-06-12] MEDS: ROSUVASTATIN 10 MG TAB (CRESTOR) PO SCH (20:23)
[2022-06-12] MEDS: LOSARTAN 50MG TABLET PO SCH (20:23)
[2022-06-13] VITALS (26 sets, daily range): BP systolic 122–130; BP diastolic 64–93; O2SAT 86–99
[2022-06-13] MEDS: IPRATROPIUM 0.5MG/ALBUTEROL 2.5MG INH SOL UD 3ML (DUONEB) NEB SCH ×7 (02:52→23:04)
[2022-06-13] MEDS: LEVOTHYROXINE 88MCG TABLET (0.088 MG) PO SCH (05:58)
[2022-06-13 06:17] LABS: BASO % 0.4 % (0.0-1.0); EOS # 0.1 10^3/uL (0.0-0.5); EOS % 0.8 % (0.0-3.0); HEMATOCRIT 37.8 % (36.0-47.0); HEMOGLOBIN 12.7 g/dl (12.0-15.5); LYMPH # 2.2 10^3/uL (1.5-5.0); LYMPH % 23.4 % (24.0-44.0); MEAN CORPUSCULAR HEMOGLOBIN 33.9 pg (27.0-33.0); MEAN CORPUSCULAR HGB CONC 33.6 g/dl (32.0-36.5); MEAN CORPUSCULAR VOLUME 100.8 fl (80.0-96.0); MONO # 0.7 10^3/uL (0.0-0.8); MONO % 7.7 % (2.0-8.0); NEUTROPHILS # 6.3 10^3/uL (1.5-8.5); NEUTROPHILS % 66.2 % (36.0-66.0); PLATELET COUNT, AUTOMATED 235 10^3/uL (150-450); RED BLOOD COUNT 3.75 10^6/uL (4.00-5.40); WHITE BLOOD COUNT 9.5 10^3/uL (4.0-10.0)
[2022-06-13 06:44] LABS: BLOOD UREA NITROGEN 18 MG/DL (7-18); CALCIUM LEVEL 8.9 MG/DL (8.8-10.2); CARBON DIOXIDE LEVEL 31 MEQ/L (21-32); CHLORIDE LEVEL 105 MEQ/L (98-107); CREATININE FOR GFR 0.72 MG/DL (0.55-1.30); GLOMERULAR FILTRATION RATE > 60.0 (>45); GLUCOSE, FASTING 96 MG/DL (70-100); POTASSIUM SERUM 3.7 MEQ/L (3.5-5.1); SODIUM LEVEL 140 MEQ/L (136-145)
[2022-06-13] MEDS: BUDESONIDE 0.25 MG/2 ML INHALATION SUSPENSION INH SCH ×3 (07:31→19:14)
[2022-06-13] MEDS: GABAPENTIN 300 MG CAP PO SCH ×2 (08:09→20:44)
[2022-06-13] MEDS: FUROSEMIDE 40 MG TAB PO SCH ×2 (08:10→16:16)
[2022-06-13] MEDS: PANTOPRAZOLE 40MG TAB (PROTONIX) PO SCH (08:10)
[2022-06-13] MEDS: AZITHROMYCIN 250MG TABLET PO SCH (08:10)
[2022-06-13] MEDS: predniSONE 20 MG TAB PO SCH (08:10)
[2022-06-13] MEDS: ACETAMINOPHEN TAB 650MG DOSE (2X325MG) PO PRN ×2 (13:16→20:45)
[2022-06-13] MEDS ORDERED: SODIUM CHLORIDE 0.9% INJ 10 ML SYR IV PRN (15:35)
[2022-06-13] MEDS: SODIUM CHLORIDE 0.9% INJ 10 ML SYR IV SCH (16:16)
[2022-06-13] MEDS ORDERED: IBUPROFEN 600MG TAB PO PRN (16:30)
[2022-06-13] MEDS: CitaloPRAM (CeleXA) 20 MG TAB PO SCH (20:43)
[2022-06-13] MEDS: ASPIRIN 81 MG CHEW TABLET PO SCH (20:43)
[2022-06-13] MEDS: LOSARTAN 50MG TABLET PO SCH (20:43)
[2022-06-13] MEDS: ROSUVASTATIN 10 MG TAB (CRESTOR) PO SCH (20:43)
[2022-06-13] MEDS: ENOXAPARIN 40MG/0.4ML SYRINGE (J1650 PER 10MG) SC SCH (20:43)
[2022-06-13] MEDS: MONTELUKAST 10 MG TAB PO SCH (20:44)
[2022-06-13] MEDS: METOPROLOL SUCC (TopROL XL) 50MG **XL** TAB PO SCH (20:44)
[2022-06-13] MEDS: CLOPIDOGREL 75 MG TAB PO SCH (21:20)
[2022-06-14] VITALS (26 sets, daily range): BP systolic 130–144; BP diastolic 64–80; O2SAT 86–99
[2022-06-14] MEDS: IPRATROPIUM 0.5MG/ALBUTEROL 2.5MG INH SOL UD 3ML (DUONEB) NEB SCH ×6 (02:55→23:20)
[2022-06-14] MEDS: LEVOTHYROXINE 88MCG TABLET (0.088 MG) PO SCH (05:34)
[2022-06-14] MEDS: SODIUM CHLORIDE 0.9% INJ 10 ML SYR IV PRN (05:35)
[2022-06-14] MEDS: SODIUM CHLORIDE 0.9% INJ 10 ML SYR IV SCH ×2 (05:35→18:09)
[2022-06-14 06:35] LABS: HEMATOCRIT 37.9 % (36.0-47.0); HEMOGLOBIN 12.7 g/dl (12.0-15.5); MEAN CORPUSCULAR HEMOGLOBIN 33.4 pg (27.0-33.0); MEAN CORPUSCULAR HGB CONC 33.5 g/dl (32.0-36.5); MEAN CORPUSCULAR VOLUME 99.7 fl (80.0-96.0); PLATELET COUNT, AUTOMATED 249 10^3/uL (150-450); WHITE BLOOD COUNT 8.8 10^3/uL (4.0-10.0)
[2022-06-14 07:02] LABS: BLOOD UREA NITROGEN 16 MG/DL (7-18); CALCIUM LEVEL 8.9 MG/DL (8.8-10.2); CARBON DIOXIDE LEVEL 30 MEQ/L (21-32); CHLORIDE LEVEL 102 MEQ/L (98-107); CREATININE FOR GFR 0.75 MG/DL (0.55-1.30); GLOMERULAR FILTRATION RATE > 60.0 (>45); GLUCOSE, FASTING 86 MG/DL (70-100); SODIUM LEVEL 138 MEQ/L (136-145)
[2022-06-14] MEDS: BUDESONIDE 0.25 MG/2 ML INHALATION SUSPENSION INH SCH ×2 (07:12→19:34)
[2022-06-14] MEDS: AZITHROMYCIN 250MG TABLET PO SCH (08:54)
[2022-06-14] MEDS: GABAPENTIN 300 MG CAP PO SCH ×2 (08:55→20:33)
[2022-06-14] MEDS: predniSONE 20 MG TAB PO SCH (08:55)
[2022-06-14] MEDS: PANTOPRAZOLE 40MG TAB (PROTONIX) PO SCH (08:55)
[2022-06-14] MEDS: FUROSEMIDE 40 MG TAB PO SCH ×2 (08:55→16:29)
[2022-06-14] MEDS: POTASSIUM CHLORIDE 10MEQ SR TABLET PO SCH ×3 (08:56→20:32)
[2022-06-14 09:45] LABS: MAGNESIUM LEVEL 2.4 MG/DL (1.8-2.4)
[2022-06-14] MEDS: ASPIRIN 81 MG CHEW TABLET PO SCH (20:32)
[2022-06-14] MEDS: ENOXAPARIN 40MG/0.4ML SYRINGE (J1650 PER 10MG) SC SCH (20:32)
[2022-06-14] MEDS: MONTELUKAST 10 MG TAB PO SCH (20:33)
[2022-06-14] MEDS: ROSUVASTATIN 10 MG TAB (CRESTOR) PO SCH (20:33)
[2022-06-14] MEDS: CLOPIDOGREL 75 MG TAB PO SCH (20:33)
[2022-06-14] MEDS: METOPROLOL SUCC (TopROL XL) 50MG **XL** TAB PO SCH (20:33)
[2022-06-14] MEDS: LOSARTAN 50MG TABLET PO SCH (20:33)
[2022-06-14] MEDS: CitaloPRAM (CeleXA) 20 MG TAB PO SCH (20:33)
[2022-06-15] VITALS (12 sets, daily range): BP systolic 132–137; BP diastolic 66–87; O2SAT 77–96
[2022-06-15] MEDS: IPRATROPIUM 0.5MG/ALBUTEROL 2.5MG INH SOL UD 3ML (DUONEB) NEB SCH ×2 (03:05→07:41)
[2022-06-15 04:33] LABS: HEMATOCRIT 40.6 % (36.0-47.0); HEMOGLOBIN 13.6 g/dl (12.0-15.5); MEAN CORPUSCULAR HEMOGLOBIN 33.3 pg (27.0-33.0); MEAN CORPUSCULAR HGB CONC 33.5 g/dl (32.0-36.5); MEAN CORPUSCULAR VOLUME 99.5 fl (80.0-96.0); PLATELET COUNT, AUTOMATED 280 10^3/uL (150-450); RED BLOOD COUNT 4.08 10^6/uL (4.00-5.40); WHITE BLOOD COUNT 11.6 10^3/uL (4.0-10.0)
[2022-06-15 05:06] LABS: BLOOD UREA NITROGEN 19 MG/DL (7-18); CALCIUM LEVEL 9.4 MG/DL (8.8-10.2); CARBON DIOXIDE LEVEL 27 MEQ/L (21-32); CHLORIDE LEVEL 105 MEQ/L (98-107); GLOMERULAR FILTRATION RATE > 60.0 (>45); GLUCOSE, FASTING 103 MG/DL (70-100); MAGNESIUM LEVEL 2.2 MG/DL (1.8-2.4); POTASSIUM SERUM 4.2 MEQ/L (3.5-5.1); SODIUM LEVEL 140 MEQ/L (136-145)
[2022-06-15] MEDS: LEVOTHYROXINE 88MCG TABLET (0.088 MG) PO SCH (06:09)
[2022-06-15] MEDS: SODIUM CHLORIDE 0.9% INJ 10 ML SYR IV SCH (06:10)
[2022-06-15] MEDS: SODIUM CHLORIDE 0.9% INJ 10 ML SYR IV PRN (06:10)
[2022-06-15] MEDS: BUDESONIDE 0.25 MG/2 ML INHALATION SUSPENSION INH SCH (07:42)
[2022-06-15] MEDS: PANTOPRAZOLE 40MG TAB (PROTONIX) PO SCH (08:23)
[2022-06-15] MEDS: GABAPENTIN 300 MG CAP PO SCH (08:24)
[2022-06-15] MEDS: predniSONE 20 MG TAB PO SCH (08:24)
[2022-06-15] MEDS: POTASSIUM CHLORIDE 10MEQ SR TABLET PO SCH (08:24)
[2022-06-15] MEDS: FUROSEMIDE 40 MG TAB PO SCH (08:24)
[2022-06-15] MEDS ORDERED: PRED20TA PO (09:59)
[2022-06-15] MEDS ORDERED: POTA-136 PO (09:59)
== END 2022-06-15 11:00 | disposition home or self-care (01) | DRG 202 ==
LOC: M ED 14:52 → EDBD 14:52 → M ED INP 14:53 → M PCU 17:18 → UNDOADMOB 17:18 → ENRESERV 17:44 → M PCU 19:00 → OBSVTOIN 06-11 07:15
PROVIDERS: ADMIT Internal Medicine; ATTEND Family Medicine
PROC: 05HB33Z Insertion of Infusion Device into Right Basilic Vein, Percutaneous Approach (ICD-10-PCS; principal; 2022-06-11 12:00)
DX: J45.901 Unspecified asthma with (acute) exacerbation (principal); J96.01 Acute respiratory failure with hypoxia; J44.1 Chronic obstructive pulmonary disease with (acute) exacerbation; I50.32 Chronic diastolic (congestive) heart failure; I47.2 Ventricular tachycardia; I11.0 Hypertensive heart disease with heart failure; I27.20 Pulmonary hypertension, unspecified; I25.10 Atherosclerotic heart disease of native coronary artery without angina pectoris; K21.9 Gastro-esophageal reflux disease without esophagitis; E03.9 Hypothyroidism, unspecified; I27.81 Cor pulmonale (chronic); E87.6 Hypokalemia; F32.A Depression, unspecified; B34.8 Other viral infections of unspecified site; Z79.899 Other long term (current) drug therapy; Z79.82 Long term (current) use of aspirin; E78.5 Hyperlipidemia, unspecified; Z88.0 Allergy status to penicillin; Z88.8 Allergy status to other drugs, medicaments and biological substances

== ENCOUNTER → 2022-08-01 | Outpatient (CLI) | payer MEDICARE, BC ==
[~2022-08-01] MED LIST changes: +**SFHN** LIDOCAINE 1% MDV 20ML VIAL ONE; +**SFHN** methylPREDNISolone 40MG 1ML VIAL ONE; +BUDE0.5S6 INH; +CALC600T60 PO; +ERGO500029 PO; +FURO40TA2 PO; +ISOVUE-300 61% 50ML VIAL ONE; +METO1TAB7 PO; +POTA-136 PO; +POTA99CA2 PO
== END ==
LOC: M PLAIMG 12:11
PROVIDERS: ATTEND Physician Assistant
DX: M16.12 Unilateral primary osteoarthritis, left hip (principal)
CPT/HCPCS: 20610; 76000; J2920; Q9967

== ENCOUNTER → 2022-09-23 | Outpatient (REF) | payer MEDICARE, BC, OTHER ==
[~2022-09-23] MED LIST changes: -**SFHN** LIDOCAINE 1% MDV 20ML VIAL ONE; -**SFHN** methylPREDNISolone 40MG 1ML VIAL ONE; -ISOVUE-300 61% 50ML VIAL ONE
[2022-09-23 17:43] LABS: BASO # 0.1 10^3/uL (0.0-0.2); EOS # 0.9 10^3/uL (0.0-0.5); EOS % 10.5 % (0.0-3.0); HEMATOCRIT 39.4 % (36.0-47.0); HEMOGLOBIN 12.8 g/dl (12.0-15.5); LYMPH # 2.4 10^3/uL (1.5-5.0); LYMPH % 29.2 % (24.0-44.0); MEAN CORPUSCULAR HEMOGLOBIN 32.9 pg (27.0-33.0); MEAN CORPUSCULAR HGB CONC 32.5 g/dl (32.0-36.5); MEAN CORPUSCULAR VOLUME 101.3 fl (80.0-96.0); MONO # 0.5 10^3/uL (0.0-0.8); MONO % 6.5 % (2.0-8.0); NEUTROPHILS # 4.4 10^3/uL (1.5-8.5); NEUTROPHILS % 52.3 % (36.0-66.0); PLATELET COUNT, AUTOMATED 295 10^3/uL (150-450); RED BLOOD COUNT 3.89 10^6/uL (4.00-5.40); WHITE BLOOD COUNT 8.4 10^3/uL (4.0-10.0)
[2022-09-23 18:29] LABS: ERYTHROCYTE SEDIMENTATION RATE 12 mm/hr (0-30)
== END ==
LOC: M LABDRWCV 16:51
PROVIDERS: ATTEND Orthopaedic Surgery
DX: M51.36 Other intervertebral disc degeneration, lumbar region (principal); M87.052 Idiopathic aseptic necrosis of left femur

== ENCOUNTER → 2022-10-13 | Outpatient (CLI) | payer MEDICARE, BC ==
[~2022-10-13] MED LIST changes: +ISOVUE-300 61% 50ML VIAL As Ordered ONE; +LIDOCAINE 1% MDV 20ML VIAL As Ordered ONE
== END ==
LOC: M IRPRO 10:44
PROVIDERS: ATTEND Orthopaedic Surgery
DX: M25.452 Effusion, left hip (principal)
CPT/HCPCS: 20610; 76000; 87070; 87077; 87186; 87205; Q9967

== ENCOUNTER → 2022-10-28 | Outpatient (CLI) | payer MEDICARE, BC ==
[~2022-10-28] MED LIST changes: -ISOVUE-300 61% 50ML VIAL As Ordered ONE; -LIDOCAINE 1% MDV 20ML VIAL As Ordered ONE; +MONT-5 PO; -SING10TA32 PO
[2022-10-28 15:35] LABS: BASO # 0.1 10^3/uL (0.0-0.2); BASO % 0.9 % (0.0-1.0); EOS # 0.8 10^3/uL (0.0-0.5); EOS % 9.5 % (0.0-3.0); HEMATOCRIT 45.6 % (36.0-47.0); HEMOGLOBIN 15.6 g/dl (12.0-15.5); LYMPH # 1.9 10^3/uL (1.5-5.0); LYMPH % 23.2 % (24.0-44.0); MEAN CORPUSCULAR HEMOGLOBIN 34.1 pg (27.0-33.0); MEAN CORPUSCULAR HGB CONC 34.2 g/dl (32.0-36.5); MEAN CORPUSCULAR VOLUME 99.8 fl (80.0-96.0); MONO # 0.5 10^3/uL (0.0-0.8); NEUTROPHILS # 4.9 10^3/uL (1.5-8.5); NEUTROPHILS % 59.8 % (36.0-66.0); PLATELET COUNT, AUTOMATED 270 10^3/uL (150-450); RED BLOOD COUNT 4.57 10^6/uL (4.00-5.40); WHITE BLOOD COUNT 8.2 10^3/uL (4.0-10.0)
[2022-10-28 15:48] LABS: ERYTHROCYTE SEDIMENTATION RATE 7 mm/hr (0-30)
== END ==
LOC: M PLALAB 12:57
PROVIDERS: ATTEND Internal Medicine Infectious Disease
DX: M25.452 Effusion, left hip (principal)

== ENCOUNTER → 2022-12-26 | Outpatient (CLI) | payer MEDICARE, BC | LOC: M RAD 09:45 | PROVIDERS: ATTEND Orthopaedic Surgery | DX: M79.605 Pain in left leg (principal) ==

== ENCOUNTER → 2023-03-04 | Outpatient (CLI) | payer MEDICARE, BC ==
[~2023-03-04] MED LIST changes: -LOSA100T45 PO; +LOSA100T46 PO
== END ==
LOC: M RAD 09:48
PROVIDERS: ATTEND Internal Medicine Pulmonary Disease
DX: Z12.2 Encounter for screening for malignant neoplasm of respiratory organs (principal); Z87.891 Personal history of nicotine dependence